=== PATIENT | female | born 1975 | race Caucasian/White ===

== ENCOUNTER 2016-10-21 08:56 | Emergency (ER) | payer BC, OTHER ==
[2016-10-21 09:42] LABS: BASOPHILS # (AUTO) 0.1 X10^3/uL (0.0-0.1); BASOPHILS % (AUTO) 1.4 % (0.2-1.0); EOSINOPHILS # (AUTO) 0.4 x10^3/uL (0.0-0.2); EOSINOPHILS % (AUTO) 3.8 % (0.9-2.9); HEMATOCRIT 39.3 % (36.0-47.0); HEMOGLOBIN 13.4 g/dL (12.0-16.0); LYMPHOCYTES # (AUTO) 3.1 X10^3/uL (1.3-2.9); LYMPHOCYTES % (AUTO) 31.7 % (21.0-51.0); MEAN CORPUSCULAR HEMOGLOBIN 29.6 pg (27.0-34.0); MEAN CORPUSCULAR HGB CONC 34.2 g/dL (33.0-35.0); MEAN CORPUSCULAR VOLUME 86.4 fL (80.0-100.0); MEAN PLATELET VOLUME 9.2 fL (7.4-11.0); MONOCYTES # (AUTO) 0.5 x10^3/uL (0.3-0.8); MONOCYTES % (AUTO) 5.4 % (0.0-13.0); NEUTROPHILS # (AUTO) 5.7 x10^3/uL (2.2-4.8); NEUTROPHILS % (AUTO) 57.7 % (42.0-75.0); PLATELET COUNT 434 X10^3/uL (150.0-450.0); RED BLOOD COUNT 4.54 X10^6/uL (3.5-5.4); RED CELL DISTRIBUTION WIDTH 13.3 % (11.6-16.5); WHITE BLOOD COUNT 9.9 X10^3/uL (3.6-10.0)
--- NOTE | 2016-10-21 09:48 | RAD ---
Chest, one view Indication: Chest pain Comparison: August 20, 2015 Findings: The cardiac silhouette is normal in size. No focal consolidation, effusion or pneumothorax is identified. The osseous thorax is unremarkable. Impression: No acute cardiopulmonary abnormality. Reported By:
--- NOTE | 2016-10-21 09:53 | DR.GENAD ---
HPI - PCP Primary Care Physician: CHEL - Complaint/Symptoms Chief Complaint Doctors Comments: History as stated. Patient admits to a cardiac echo on last year and a stress test is pending for Monday. Additionally; mom reports that patient has been living with her day in [employer] [facility] the [employer]. Two months her wes and Fridaly of last week they call stating the the Head Stone had arrived ready for placement. Chief Complaint:: PT C/O LT SIDED CHEST PAIN THAT RADIATES TO LT JAW. PT STATES SHE HAS BEEN HAVING PAINS SINCE THIS PAST MONDAY. PT STATES SHE WAS SEEN IN [facility] ER. PT STATES THE PAIN FEELS LIKE IT IS GETTING WORSE (STABBING PAIN. ) PT STATES HER PAIN IS A CONSTANT PAIN IT JUST GETS MORE INTENSE AT TIMES. - Source History Provided: Patient - Mode of Arrival Mode of Arrival: Ambulatory - Timing Onset of Chief Complaint: 10/17/16 PMH - PMH Past Medical History: Yes Past Medical History: Arthritis, Asthma, Dyslipidemia, Migraines, Hypertension, Hypothyroidism Past Medical History Comment: RAPID HR, SEASONAL ALLERGIES, INSOMNIA Past Surgical History: Yes Surgical History: Cholecystectomy, Ortho Surgery, Other, Tonsillectomy Past Surgical History Comment: TMJ SURGERY, X2 SINUS SURGERIES, RT HAND CARPAL TUNNEL, NERVE SURGERY IN RT ARM, TFCC REPAIR - Family History History of Family Medical Conditions: Yes Family Medical History: Hypertension - Social History Does any household member use tobacco: No Alcohol Use: None Do you use any recreational Drugs:: No Lives With: Mom Lives Where: Home - infectious screening In the last 2 months have you had wt loss of >10#?: NO Have you had fever, night sweats or hemotysis?: No Have you traveled outside the country in the last 6 months?: No Isolation: Standard ROS - Review of Systems Eyes: No Symptoms Reported ENTM: No Symptoms Reported Respiratoy: No Symptoms Reported Cardiovascular: No Symptoms Reported Gastrointestinal/Abdominal: No Symptoms Reported Genitourinary: No Symptoms Reported Neurological: No Symptoms Reported Musculoskeletal: No Symptoms Reported Integumentary: No Symptoms Reported Hematologic/Lymphatic: No Symptoms Reported Endocrine: No Symptoms Reported Psychiatric: No Symptoms Reported All Other Systems: Reviewed and Negative PE - Vital Signs Vitals: Temperature 98.5 F Pulse Rate 89 Respiratory Rate 18 Blood Pressure [Right Arm] 161/72 Blood Pressure [Left Arm] 140/73 Blood Pressure 120/77 O2 Sat by Pulse Oximetry 96 - General Limitations: No Limitations General Appearance: Alert, In No Apparent Distress - Head Head Exam: Normal Inspection, Atraumatic - Eyes Eye exam: Normal Appearance, PERRL, EOMI - ENT ENT Exam: Normal Exam External Ear Exam: Normal External Inspection TM/Canal Exam: Bilateral Normal Nose Exam: Normal Nose Exam Mouth Exam: Normal Inspection Throat Exam: Normal Inspection - Neck Neck Exam: Normal Inspection, Full ROM - Chest Chest Inspection: Normal Inspection - Respiratory Respiratory Exam: Normal Lung Sounds Bilat, Prolonged Expiratory Phase Respiratory Exam: Bilateral Clear to Auscultation - Cardiovascular Cardiovascular Exam: Regular Rate, Normal Rhythm - Abdominal Exam Abdominal Exam: Normal Inspection Abdominal Tenderness: negative: RUQ, RLQ, LUQ, LLQ, Epigastrium, Suprapubic, Diffuse, Mild, Moderate, Severe, Other - Extremities Extremities Exam: Normal Inspection, Full ROM - Back Back Exam: Normal Inspection, Full ROM - Neurologic Neurological Exam: Alert, Oriented X3, CN II-XII Intact - Psychiatric Psychiatric Exam: Normal Affect - Skin Skin Exam: Warm, Dry, Intact Course - Reevaluation 1st: Unchanged - Consultation Called: 20:00 (Dr Venegas called agreed to admit for chest pain r/o) ROR - Labs Reviewed Result Diagrams: 10/21/16 09:23 10/21/16 09:23 Laboratory: WBC 9.9 X10^3/uL (3.6-10.0) 10/21/16 09:23 RBC 4.54 X10^6/uL (3.5-5.4) 10/21/16 09:23 Hgb 13.4 g/dL (12.0-16.0) 10/21/16 09:23 Hct 39.3 % (36.0-47.0) 10/21/16 09:23 MCV 86.4 fL (80.0-100.0) 10/21/16 09:23 MCH 29.6 pg (27.0-34.0) 10/21/16 09:23 MCHC 34.2 g/dL (33.0-35.0) 10/21/16 09:23 RDW 13.3 % (11.6-16.5) 10/21/16 09:23 Plt Count 434 X10^3/uL (150.0-450.0) 10/21/16 09: MPV 9.2 fL (7.4-11.0) 10/21/16 09: Neut % 57.7 % (42.0-75.0) 10/21/16 09: Lymph % 31.7 % (21.0-51.0) 10/21/16 09:23 King % 5.4 % (0.0-13.0) 10/21/16 09: Eos % 3.8 % (0.9-2.9) H 10/21/16 09:23 Baso % 1.4 % (0.2-1.0) H 10/21/16 09:23 Neut # 5.7 x10^3/uL (2.2-4.8) H 10/21/16 09:23 Lymph # 3.1 X10^3/uL (1.3-2.9) H 10/21/16 09:23 King # 0.5 x10^3/uL (0.3-0.8) 10/21/16 09: Eos # 0.4 x10^3/uL (0.0-0.2) H 10/21/16 09:23 Baso # 0.1 X10^3/uL (0.0-0.1) 10/21/16 09:23 Absolute Nucleated RBC 0.0 /100WBC 10/21/16 09:23 INR Target Range - 10/21/16 09: INR 1.02 (0.8-1.3) 10/21/16 09: PTT 31.8 SECONDS (22.9-36.5) 10/21/16 09:23 PTT Comment - 10/21/16 09:23 Sodium 143 mmol/L (136-145) 10/21/16 09:23 Corrected Sodium TNP 10/21/16 09:23 Potassium 3.7 mmol/L (3.5-5.1) 10/21/16 09:23 Chloride 107 mmol/L (98-107) 10/21/16 09:23 Carbon Dioxide 25.5 mmol/L (21-32) 10/21/16 09:23 BUN 9 mg/dL (7-18) 10/21/16 09:23 Creatinine 0.93 mg/dL (0.55-1.02) 10/21/16 09:23 Est GFR (MDRD) Af Amer > 60 (>60) 10/21/16 09:23 Est GFR (MDRD) Non-Af > 60 (>60) 10/21/16 09:23 Glucose 92 mg/dL (65-99) 10/21/16 09:23 Calcium 9.3 mg/dL (8.5-10.1) 10/21/16 09:23 Corrected Calcium TNP 10/21/16 09:23 Magnesium 1.7 mg/dL (1.7-2.9) 10/21/16 09:23 Total Bilirubin 0.30 mg/dL (0.2-1.0) 10/21/16 09:23 AST 36 Units/L (15-37) 10/21/16 09:23 ALT 38 Units/L (12-78) 10/21/16 09:23 Alkaline Phosphatase 43 Units/L (46-116) L 10/21/16 09:23 Creatine Kinase 56 Units/L (26-192) 10/21/16 09:23 CK-MB (CK-2) < 1.0 ng/mL (0-4.0) 10/21/16 09:23 CK/CKMB % Calc 1.8 % (<4) 10/21/16 09:23 Troponin I < 0.02 ng/mL (0-1.5) 10/21/16 09:23 Total Protein 7.3 g/dL (6.4-8.2) 10/21/16 09:23 Albumin 3.7 g/dL (3.4-5.0) 10/21/16 09:23 Globulin 3.6 g/dL (2.5-4.5) 10/21/16 09:23 Albumin/Globulin Ratio 1.0 Ratio (1.1-2.1) L 10/21/16 09:23 - XRAY XRAY Interpreted by: Radiologist - Diagnosis Discharge Problem: Chest pain due to psychological stress Chest pain Qualifiers: Chest pain type: unspecified Qualified Code(s): R07.9 - Chest pain, unspecified - Discharge Plan Condition: Stable - Follow ups/Referrals Follow ups/Referrals: Surjit Gamboa [Primary Care Provider] - 3 days - Instructions
[2016-10-21 09:58] LABS: ALANINE AMINOTRANSFERASE 38 Units/L (12-78); ALBUMIN 3.7 g/dL (3.4-5.0); ALKALINE PHOSPHATASE 43 Units/L (46-116); ASPARTATE AMINO TRANSFERASE 36 Units/L (15-37); BLOOD UREA NITROGEN 9 mg/dL (7-18); CALCIUM 9.3 mg/dL (8.5-10.1); CARBON DIOXIDE 25.5 mmol/L (21-32); CHLORIDE 107 mmol/L (98-107); CREATINE KINASE 56 Units/L (26-192); CREATINE KINASE MB < 1.0 ng/mL (0-4.0); CREATININE 0.93 mg/dL (0.55-1.02); MAGNESIUM 1.7 mg/dL (1.7-2.9); SODIUM 143 mmol/L (136-145); TOTAL PROTEIN 7.3 g/dL (6.4-8.2); TROPONIN I < 0.02 ng/mL (0-1.5); eGFR BLACK RACES > 60 (>60); eGFR NON BLACK RACES > 60 (>60)
[2016-10-21 10:02] LABS: CKMB % 1.8 % (<4)
[2016-10-21] MEDS: NS 1000 ML 1,000 ML IV SCH ×2 (10:02→17:18)
[2016-10-21] MEDS: ASPIRIN PO SCH (10:03)
[2016-10-21] MEDS: NITROSTAT SL PRN ×3 (10:03→10:13)
[2016-10-21] MEDS ORDERED: MORPHINE SULFATE INJ 4 MG IVP ONE (11:00)
[2016-10-21] MEDS ORDERED: ZOFRAN INJ 4 MG VIAL IVP ONE (11:06)
[2016-10-21] MEDS ORDERED: ZOFRAN INJ 4 MG VIAL ONE (11:07)
[2016-10-21] MEDS ORDERED: MORPHINE SULFATE INJ 4 MG ONE (11:07)
[2016-10-21] MEDS ORDERED: MORPHINE SULFATE INJ 2 MG INJ NEB PRN (11:50)
[2016-10-21] MEDS ORDERED: ZOFRAN INJ 4 MG VIAL IVP PRN (11:50)
[2016-10-21] MEDS ORDERED: PHENERGAN INJ 25 MG ONE (12:49)
[2016-10-21] MEDS ORDERED: PHENERGAN INJ 25 MG IVP ONE (12:52)
[2016-10-21 13:38] VITALS: BMI 29.0
[2016-10-21] MEDS: TYLENOL 325 MG TAB PO PRN (14:03)
[2016-10-21 15:47] LABS: CREATINE KINASE 51 Units/L (26-192); CREATINE KINASE MB < 1.0 ng/mL (0-4.0); TROPONIN I < 0.02 ng/mL (0-1.5)
[2016-10-21] MEDS: NORCO 5/325 MG TAB PO PRN (20:50)
[2016-10-21 21:44] LABS: CREATINE KINASE 49 Units/L (26-192); CREATINE KINASE MB < 1.0 ng/mL (0-4.0); TROPONIN I < 0.02 ng/mL (0-1.5)
[2016-10-22] MEDS: NS 1000 ML 1,000 ML IV SCH ×3 (01:21→10:00)
[2016-10-22] MEDS: NORCO 5/325 MG TAB PO PRN (05:04)
[2016-10-22] MEDS: NITROSTAT SL PRN ×2 (07:35→09:51)
[2016-10-22] MEDS: ASPIRIN PO SCH (08:44)
[2016-10-22] MEDS: TYLENOL 325 MG TAB PO PRN (09:52)
[2016-10-22 12:19] VITALS: BP 137/78
== END 2016-10-22 14:25 | disposition home or self-care (01) ==
LOC: ER 09:05 → MED/SURG 11:46
PROVIDERS: ADMIT Internal Medicine; ATTEND Internal Medicine
DX: R07.89 Other chest pain (principal); M13.89 Other specified arthritis, multiple sites; E78.2 Mixed hyperlipidemia; I10 Essential (primary) hypertension; E03.8 Other specified hypothyroidism; F43.8 Other reactions to severe stress
CPT/HCPCS: 36415; 71010; 80053; 82550; 82553; 83735; 84484; 85025; 85610; 85730; 93005; 94760; 96365; 96367; 96374; 96375; 99284; A4222; G0378; J2270; J2405; J2550

== ENCOUNTER 2016-11-12 13:58 | Emergency (ER) | payer BC ==
[2016-11-12 14:02] VITALS: BP 160/96; BMI 29.2
--- NOTE | 2016-11-12 14:19 | DR.GENAD ---
HPI - PCP Primary Care Physician: CHEL - HPI Comment HPI Comment: NO FEVER. VERTIGO TODAY.MECLIZINE DID NOT HELP. HEADACHE SEVERE. NAUSEATED AND VOMITING. - Complaint/Symptoms Chief Complaint Doctors Comments: DIZZINESS, LT EAR PAIN, NAUSEA AND HEADACHE TIMES ONE DAY. Chief Complaint:: STARTED FEELING REALLY DIZZY YESTERDAY AND TODAY HER EARS STARTED TO HURT. - Nurses notes reviewed Nurses Notes Review: Yes - Source History Provided: Patient - Mode of Arrival Mode of Arrival: Ambulatory - Timing Onset of Chief Complaint: 11/11/16 PMH - PMH Past Medical History: Yes Past Medical History: Arthritis, Asthma, Dyslipidemia, Migraines, Hypertension, Hypothyroidism Past Surgical History: Yes Surgical History: Cholecystectomy, Tonsillectomy, Other - Family History History of Family Medical Conditions: Yes Family Medical History: Diabetes Mellitus, Cancer, NH, Coronary Artery Disease, Hypertension - Social History Does patient currently use any type of tobacco product: No Have you used tobacco products in the last 12 months: No Type of Tobacco Use: None Does any household member use tobacco: No Alcohol Use: None Do you use any recreational Drugs:: No Lives With: Family Lives Where: Home - infectious screening In the last 2 months have you had wt loss of >10#?: NO Have you had fever, night sweats or hemotysis?: No Have you traveled outside the country in the last 6 months?: No Isolation: Standard ROS - Review of Systems Constitutional: No Symptoms Reported Eyes: No Symptoms Reported. negative: Eye Pain, Discharge ENTM: Ear Pain (LT EAR), Ear Discharge, Nose Congestion. negative: Nose Discharge, Throat Pain Respiratoy: No Symptoms Reported Cardiovascular: No Symptoms Reported Gastrointestinal/Abdominal: Nausea, Vomiting Genitourinary: No Symptoms Reported. negative: Dysuria, Frequency, Hematuria Neurological: Headache, Weakness, Dizziness, Other (VERTIGO) Musculoskeletal: Back Pain, Muscle Pain, Back Integumentary: No Symptoms Reported Hematologic/Lymphatic: No Symptoms Reported Endocrine: No Symptoms Reported All Other Systems: Reviewed and Negative PE - Vital Signs Vitals: Pulse Rate 73 Respiratory Rate 20 Blood Pressure [Right Arm] 137/78 Blood Pressure [Left Arm] 140/73 Blood Pressure 160/96 O2 Sat by Pulse Oximetry 97 - General Limitations: No Limitations General Appearance: Alert - Head Head Exam: Normal Inspection - Eyes Eye exam: Normal Appearance, PERRL, EOMI. negative: Scleral Icterus, Conjunctival Injection - ENT ENT Exam: Normal Exam, Normal External Ear Exam. negative: TM's Normal Bilaterally (LT TM INFLAME.) External Ear Exam: Normal External Inspection. negative: Mastoid Tenderness TM/Canal Exam: Right Normal Nose Exam: Normal Nose Exam Mouth Exam: Normal Inspection Throat Exam: Normal Inspection, Tonsillar Erythema - Neck Neck Exam: Normal Inspection, Full ROM - Chest Chest Inspection: Symmetric Chest Wall Rise - Respiratory Respiratory Exam: Normal Lung Sounds Bilat Respiratory Exam: Bilateral Clear to Auscultation - Cardiovascular Cardiovascular Exam: Regular Rate, Normal Rhythm, Normal Heart Sounds - Abdominal Exam Abdominal Exam: Normal Inspection - Back Back Exam: Normal Inspection, Full ROM, Tenderness - Neurologic Neurological Exam: Alert, Oriented X3, CN II-XII Intact - Psychiatric Psychiatric Exam: Normal Mood - Skin Skin Exam: Erythema MDM - Additional Information Additional Information Obtained From: Old Records, Family - Differential Diagnosis Differential Diagnosis: VERTIGO, CVA, LT OTITIS MEDIA, PNEUMONIA, NH, UTI Course - Treatment Treatment: SEE ORDERS. IV MEDS IN ED. - Education/Counseling Education/Counseling: Patient, Family, Education Educated On: Treatment, Diagnosis, Needs for Follow Up ROR - Labs Reviewed Laboratory Results Reviewed?: Yes Result Diagrams: 11/12/16 14:30 11/12/16 14:30 Laboratory: WBC 12.0 X10^3/uL (3.6-10.0) H 11/12/16 14:30 RBC 4.89 X10^6/uL (3.5-5.4) 11/12/16 14:30 Hgb 14.7 g/dL (12.0-16.0) 11/12/16 14:30 Hct 42.7 % (36.0-47.0) 11/12/16 14:30 MCV 87.4 fL (80.0-100.0) 11/12/16 14:30 MCH 30.0 pg (27.0-34.0) 11/12/16 14:30 MCHC 34.4 g/dL (33.0-35.0) 11/12/16 14:30 RDW 13.7 % (11.6-16.5) 11/12/16 14:30 Plt Count 499 X10^3/uL (150.0-450.0) H 11/12/16 14:30 MPV 8.7 fL (7.4-11.0) 11/12/16 14:30 Neut % 70.7 % (42.0-75.0) 11/12/16 14:30 Lymph % 22.6 % (21.0-51.0) 11/12/16 14:30 Cassia % 4.7 % (0.0-13.0) 11/12/16 14:30 Eos % 0.9 % (0.9-2.9) 11/12/16 14:30 Baso % 1.1 % (0.2-1.0) H 11/12/16 14:30 Neut # 8.5 x10^3/uL (2.2-4.8) H 11/12/16 14:30 Lymph # 2.7 X10^3/uL (1.3-2.9) 11/12/16 14:30 Cassia # 0.6 x10^3/uL (0.3-0.8) 11/12/16 14:30 Eos # 0.1 x10^3/uL (0.0-0.2) 11/12/16 14:30 Baso # 0.1 X10^3/uL (0.0-0.1) 11/12/16 14:30 Absolute Nucleated RBC 0.0 /100WBC 11/12/16 14:30 Sodium 142 mmol/L (136-145) 11/12/16 14:30 Corrected Sodium TNP 11/12/16 14:30 Potassium 3.7 mmol/L (3.5-5.1) 11/12/16 14:30 Chloride 105 mmol/L (98-107) 11/12/16 14:30 Carbon Dioxide 21.5 mmol/L (21-32) 11/12/16 14:30 BUN 9 mg/dL (7-18) 11/12/16 14:30 Creatinine 1.34 mg/dL (0.55-1.02) H 11/12/16 14:30 Est GFR (MDRD) Af Amer 56 (>60) L 11/12/16 14:30 Est GFR (MDRD) Non-Af 47 (>60) L 11/12/16 14:30 Glucose 88 mg/dL (65-99) 11/12/16 14:30 Calcium 10.0 mg/dL (8.5-10.1) 11/12/16 14:30 Corrected Calcium TNP 11/12/16 14:30 Total Bilirubin 0.50 mg/dL (0.2-1.0) 11/12/16 14:30 AST 27 Units/L (15-37) 11/12/16 14:30 ALT 29 Units/L (12-78) 11/12/16 14:30 Alkaline Phosphatase 42 Units/L (46-116) L 11/12/16 14:30 Creatine Kinase 72 Units/L (26-192) 11/12/16 14:30 CK-MB (CK-2) < 1.0 ng/mL (0-4.0) 11/12/16 14:30 CK/CKMB % Calc 1.4 % (<4) 11/12/16 14:30 Troponin I < 0.02 ng/mL (0-1.5) 11/12/16 14:30 Total Protein 8.4 g/dL (6.4-8.2) H 11/12/16 14:30 Albumin 4.4 g/dL (3.4-5.0) 11/12/16 14:30 Globulin 4.0 g/dL (2.5-4.5) 11/12/16 14:30 Albumin/Globulin Ratio 1.1 Ratio (1.1-2.1) 11/12/16 14:30 - XRAY XRAY Interpreted by: Radiologist XRAY Findings: REPORT DISCUSS WITH PATIENT AND FAMILY. - Diagnosis Discharge Problem: Dizziness, Vertigo Headache Qualifiers: Headache type: other headache syndrome Qualified Code(s): G44.89 - Other headache syndrome Otitis media Qualifiers: Otitis media type: suppurative Chronicity: acute Laterality: left Recurrence: not specified as recurrent Spontaneous tympanic membrane rupture: without spontaneous rupture Qualified Code(s): H66.002 - Acute suppurative otitis media without spontaneous rupture of ear drum, left ear Acute sinusitis Qualifiers: Sinusitis location: sphenoidal Recurrence: not specified as recurrent Qualified Code(s): J01.30 - Acute sphenoidal sinusitis, unspecified - Discharge Plan Disposition: 01 HOME, SELF-CARE Condition: Stable Prescriptions: Amoxicillin & Pot Clavulanate [AUGMENTIN TAB 875 mg/125 mg *] 1 tab PO BID #20 tab Copzriiwaz-Iiua-Rzmkkvum [Fioricet Tab] 1 tab PO Q8H PRN #30 tab PRN Reason: Migraine Headache Meclizine HCl [ANTIVERT 25 MG *] 25 mg PO TID PRN #30 tab PRN Reason: MOTION SICKNESS Ondansetron HCl [Zofran Tab 4 mg] 4 mg PO Q8H PRN #12 tab PRN Reason: Nausea/Vomiting - Follow ups/Referrals Follow ups/Referrals: Surjit Gamboa [Primary Care Provider] - 3 days - Instructions Instructions: Vertigo, [id number], Otitis Media, Adult, Pkfr-[id number]-[id number], Sinusitis, Adult, Qibz-tt-[id number], Sinus Headache, Gchs-mz-Trko
[2016-11-12] MEDS ORDERED: DEMEROL INJ IVP ONE (14:20)
[2016-11-12] MEDS ORDERED: PHENERGAN INJ 25 MG IV ONE (14:20)
[2016-11-12] MEDS ORDERED: PHENERGAN INJ 25 MG ONE (14:30)
[2016-11-12] MEDS ORDERED: DEMEROL INJ ONE (14:31)
[2016-11-12 14:37] LABS: BASOPHILS # (AUTO) 0.1 X10^3/uL (0.0-0.1); BASOPHILS % (AUTO) 1.1 % (0.2-1.0); EOSINOPHILS # (AUTO) 0.1 x10^3/uL (0.0-0.2); EOSINOPHILS % (AUTO) 0.9 % (0.9-2.9); HEMATOCRIT 42.7 % (36.0-47.0); HEMOGLOBIN 14.7 g/dL (12.0-16.0); LYMPHOCYTES # (AUTO) 2.7 X10^3/uL (1.3-2.9); LYMPHOCYTES % (AUTO) 22.6 % (21.0-51.0); MEAN CORPUSCULAR HGB CONC 34.4 g/dL (33.0-35.0); MEAN CORPUSCULAR VOLUME 87.4 fL (80.0-100.0); MEAN PLATELET VOLUME 8.7 fL (7.4-11.0); MONOCYTES # (AUTO) 0.6 x10^3/uL (0.3-0.8); MONOCYTES % (AUTO) 4.7 % (0.0-13.0); NEUTROPHILS # (AUTO) 8.5 x10^3/uL (2.2-4.8); NEUTROPHILS % (AUTO) 70.7 % (42.0-75.0); PLATELET COUNT 499 X10^3/uL (150.0-450.0); RED BLOOD COUNT 4.89 X10^6/uL (3.5-5.4); RED CELL DISTRIBUTION WIDTH 13.7 % (11.6-16.5)
[2016-11-12 14:56] LABS: BLOOD UREA NITROGEN 9 mg/dL (7-18); CARBON DIOXIDE 21.5 mmol/L (21-32); CHLORIDE 105 mmol/L (98-107); CREATININE 1.34 mg/dL (0.55-1.02); SODIUM 142 mmol/L (136-145); eGFR BLACK RACES 56 (>60); eGFR NON BLACK RACES 47 (>60)
--- NOTE | 2016-11-12 15:05 | CT ---
HISTORY: Headache, dizziness Study: CT brain without contrast Comparison: 08/21/2015 Technique: Multiple axial images of the brain were obtained from the skull base to the vertex without administra tion of IV contrast. Automated exposure control (AEC) was utilized to adjust the MA and/or kV accordi ng to patient size. Findings: There is no acute intracranial hemorrhage. The brain parenchyma is normal in density. No mass or ma ss effect. No abnormal extra-axial fluid collection. The ventricles are normal in size, shape and position. Basilar cisterns patent. Angel matter -white m atter interface is distinct. There are aerosolized secretions within both sphenoid chambers. There is no acute osseous abnormalit y. IMPRESSION: 1. No acute intracranial process can be identified. 2. Aerosolized secretions within the sphenoid chambers consistent with acute sinusitis in the appropr [facility] clinical setting. Reported By:
[2016-11-12 15:11] LABS: ALANINE AMINOTRANSFERASE 29 Units/L (12-78); ALBUMIN 4.4 g/dL (3.4-5.0); ALKALINE PHOSPHATASE 42 Units/L (46-116); ASPARTATE AMINO TRANSFERASE 27 Units/L (15-37); CKMB % 1.4 % (<4); CREATINE KINASE 72 Units/L (26-192); TOTAL PROTEIN 8.4 g/dL (6.4-8.2)
[2016-11-12 15:19] LABS: CREATINE KINASE MB < 1.0 ng/mL (0-4.0); TROPONIN I < 0.02 ng/mL (0-1.5)
[2016-11-12] MEDS ORDERED: DECADRON INJ IM ONE (15:56)
[2016-11-12] MEDS ORDERED: TORADOL 30 MG VIAL IVP ONE (15:56)
[2016-11-12] MEDS ORDERED: ROCEPHIN VIAL 1 GM 1 GM in NS 50 ML IV + SPIKE MINIBAG* 50 ML IV ONE (15:56)
== END 2016-11-12 16:20 | disposition home or self-care (01) ==
LOC: ER 14:06
DX: G44.89 Other headache syndrome (principal); R42 Dizziness and giddiness; H66.002 Acute suppurative otitis media without spontaneous rupture of ear drum, left ear; J01.80 Other acute sinusitis
CPT/HCPCS: 36415; 70450; 80053; 82550; 82553; 84484; 85025; 93005; 96365; 96374; 96375; 99283; A4222; J2175; J2550

== ENCOUNTER 2016-11-14 13:08 | Observation (INO) | payer BC ==
[2016-11-14] MEDS ORDERED: ROCEPHIN VIAL 1 GM 1 GM in NS 50 ML IV + SPIKE MINIBAG* 50 ML IV SCH (14:05)
[2016-11-14] MEDS ORDERED: PHENERGAN INJ 25 MG IM PRN (14:05)
[2016-11-14 14:34] LABS: BASOPHILS # (AUTO) 0.1 X10^3/uL (0.0-0.1); BASOPHILS % (AUTO) 1.3 % (0.2-1.0); EOSINOPHILS # (AUTO) 0.1 x10^3/uL (0.0-0.2); EOSINOPHILS % (AUTO) 0.9 % (0.9-2.9); HEMATOCRIT 42.8 % (36.0-47.0); HEMOGLOBIN 14.8 g/dL (12.0-16.0); LYMPHOCYTES # (AUTO) 1.9 X10^3/uL (1.3-2.9); LYMPHOCYTES % (AUTO) 20.2 % (21.0-51.0); MEAN CORPUSCULAR HEMOGLOBIN 30.2 pg (27.0-34.0); MEAN CORPUSCULAR HGB CONC 34.7 g/dL (33.0-35.0); MEAN CORPUSCULAR VOLUME 87.2 fL (80.0-100.0); MEAN PLATELET VOLUME 8.6 fL (7.4-11.0); MONOCYTES # (AUTO) 0.4 x10^3/uL (0.3-0.8); MONOCYTES % (AUTO) 3.9 % (0.0-13.0); NEUTROPHILS # (AUTO) 7.1 x10^3/uL (2.2-4.8); NEUTROPHILS % (AUTO) 73.7 % (42.0-75.0); PLATELET COUNT 462 X10^3/uL (150.0-450.0); RED CELL DISTRIBUTION WIDTH 13.8 % (11.6-16.5); WHITE BLOOD COUNT 9.6 X10^3/uL (3.6-10.0)
[2016-11-14 14:45] LABS: ALANINE AMINOTRANSFERASE 34 Units/L (12-78); ALBUMIN 4.6 g/dL (3.4-5.0); ALKALINE PHOSPHATASE 44 Units/L (46-116); ASPARTATE AMINO TRANSFERASE 31 Units/L (15-37); BLOOD UREA NITROGEN 9 mg/dL (7-18); CARBON DIOXIDE 23.5 mmol/L (21-32); CHLORIDE 106 mmol/L (98-107); CREATININE 1.21 mg/dL (0.55-1.02); SODIUM 142 mmol/L (136-145); TOTAL PROTEIN 8.7 g/dL (6.4-8.2); eGFR BLACK RACES > 60 (>60); eGFR NON BLACK RACES 52 (>60)
[2016-11-14] MEDS: NS 1000 ML 1,000 ML IV SCH (15:47)
[2016-11-14] MEDS: ANTIVERT TAB 25 MG PO SCH ×3 (15:48→20:57)
[2016-11-14] MEDS: SOLU-Medrol 125 MG VIAL IVP SCH ×2 (15:48→21:11)
[2016-11-14 17:41] VITALS: BMI 28.6
[2016-11-14] MEDS ORDERED: XANAX PO PRN (20:18)
[2016-11-14] MEDS ORDERED: ZOFRAN TAB 4 MG PO PRN (20:48)
[2016-11-14] MEDS: PROTONIX TAB 40 MG PO SCH (20:57)
[2016-11-14] MEDS: NORCO 5/325 MG TAB PO PRN (20:57)
[2016-11-14] MEDS: PHENERGAN INJ 25 MG IM PRN (20:58)
[2016-11-14] MEDS: SINGULAIR TAB 10 MG PO SCH (20:58)
[2016-11-14] MEDS: AMBIEN PO SCH (20:58)
[2016-11-14] MEDS: FLONASE NASAL SPRAY ENOSTRIL SCH (20:59)
[2016-11-14] MEDS: ZANAFLEX PO SCH (21:11)
[2016-11-14] MEDS: TESSALON PERLES PO SCH (21:11)
[2016-11-14] MEDS: NEURONTIN TAB 600 MG PO SCH (21:11)
[2016-11-14] MEDS ORDERED: PROVENTIL NEB TX 0.083% 2.5MG/ 3ML NEB PRN (21:17)
[2016-11-15] MEDS: NORCO 5/325 MG TAB PO PRN ×3 (04:03→18:25)
[2016-11-15] MEDS: PHENERGAN INJ 25 MG IM PRN ×2 (04:03→11:22)
[2016-11-15 05:21] LABS: BASOPHILS % (AUTO) 0.3 % (0.2-1.0); HEMATOCRIT 39.6 % (36.0-47.0); HEMOGLOBIN 13.5 g/dL (12.0-16.0); LYMPHOCYTES # (AUTO) 1.2 X10^3/uL (1.3-2.9); LYMPHOCYTES % (AUTO) 10.6 % (21.0-51.0); MEAN CORPUSCULAR HEMOGLOBIN 29.8 pg (27.0-34.0); MEAN CORPUSCULAR VOLUME 87.6 fL (80.0-100.0); MEAN PLATELET VOLUME 9.1 fL (7.4-11.0); MONOCYTES # (AUTO) 0.1 x10^3/uL (0.3-0.8); MONOCYTES % (AUTO) 1.3 % (0.0-13.0); NEUTROPHILS # (AUTO) 9.8 x10^3/uL (2.2-4.8); NEUTROPHILS % (AUTO) 87.8 % (42.0-75.0); PLATELET COUNT 450 X10^3/uL (150.0-450.0); RED BLOOD COUNT 4.52 X10^6/uL (3.5-5.4); WHITE BLOOD COUNT 11.1 X10^3/uL (3.6-10.0)
[2016-11-15 05:24] LABS: ALANINE AMINOTRANSFERASE 35 Units/L (12-78); ALBUMIN 3.9 g/dL (3.4-5.0); ALKALINE PHOSPHATASE 36 Units/L (46-116); ASPARTATE AMINO TRANSFERASE 31 Units/L (15-37); BLOOD UREA NITROGEN 14 mg/dL (7-18); CALCIUM 9.4 mg/dL (8.5-10.1); CARBON DIOXIDE 19.5 mmol/L (21-32); CHLORIDE 106 mmol/L (98-107); COR NA(FOR HYPERGLY) 143 mmol/L (136-145); CREATININE 1.13 mg/dL (0.55-1.02); SODIUM 142 mmol/L (136-145); TOTAL PROTEIN 7.7 g/dL (6.4-8.2); eGFR BLACK RACES > 60 (>60); eGFR NON BLACK RACES 57 (>60)
[2016-11-15] MEDS: NEURONTIN TAB 600 MG PO SCH ×3 (05:41→21:47)
[2016-11-15] MEDS: TESSALON PERLES PO SCH ×3 (05:41→21:47)
[2016-11-15] MEDS: SOLU-Medrol 125 MG VIAL IVP SCH ×3 (05:41→21:46)
[2016-11-15] MEDS: ZANAFLEX PO SCH ×3 (05:41→21:46)
[2016-11-15] MEDS: NS 1000 ML 1,000 ML IV SCH ×2 (05:45→21:53)
[2016-11-15] MEDS: SYNTHROID 50 mcg TAB PO SCH (06:01)
[2016-11-15] MEDS ORDERED: ZOLOFT PO ONE (08:46)
[2016-11-15] MEDS ORDERED: PATIENT'S HOME MEDICATION PO SCH ×2 (09:00)
[2016-11-15] MEDS: PROTONIX TAB 40 MG PO SCH ×2 (09:14→21:47)
[2016-11-15] MEDS: TOPROL XL PO SCH (09:14)
[2016-11-15] MEDS: ZANTAC PO SCH (09:14)
[2016-11-15] MEDS: MOBIC TAB 15 MG PO SCH (09:14)
[2016-11-15] MEDS: FOLIC ACID TAB 1 MG PO SCH (09:14)
[2016-11-15] MEDS: ANTIVERT TAB 25 MG PO SCH ×4 (09:14→21:46)
[2016-11-15] MEDS: TRICOR TAB 160 MG PO SCH (09:14)
[2016-11-15] MEDS: ZOLOFT PO SCH (09:14)
[2016-11-15] MEDS: FLONASE NASAL SPRAY ENOSTRIL SCH ×2 (09:16→21:47)
[2016-11-15] MEDS: ROCEPHIN VIAL 1 GM 1 GM in NS 50 ML IV 50 ML IV SCH (11:21)
[2016-11-15] MEDS: CLARITIN-D 12 HOUR TAB PO SCH ×2 (11:25→21:59)
--- NOTE | 2016-11-15 12:58 | DR.UPDATE ---
H&P Update History and Physical Update: PATIENT WAS SEEN IN THE OFFICE ON 11/14/16. A H&P WAS COMPLETED PRIOR TO ADMISSION. PATIENT HAS BEEN SEEN AND EXAMINED WITH NO CHANGES NOTED TO H&P. Changes noted: NO Yes with the following:
--- NOTE | 2016-11-15 19:31 | MRI ---
STUDY: MRI OF THE BRAIN WITHOUT GADOLINIUM History: Refractory headache. Sinusitis. Dizziness. Comparison: Brain MRI dated August 21, 2015. Head CT from August 21, 2015. Technique: Multiplanar multi-sequence MRI of the brain was obtained utilizing standard departmental p rotocol. Sagittal and axial T1, axial T2, FLAIR, diffusion (DWI/ADC) images through the brain were pe rformed. Findings: The sulci, cisterns, and ventricles are age appropriate. There is no evidence of acute terr itorial infarction, hemorrhage, mass, mass effect or midline shift. There are no abnormal intra-axial or extra-axial fluid collections. The major intracranial vascular flow voids are intact. IMPRESSION: 1. No evidence of acute intracranial abnormality. Reported By:
[2016-11-15] MEDS: SINGULAIR TAB 10 MG PO SCH (21:46)
[2016-11-15] MEDS: AMBIEN PO SCH (21:46)
--- NOTE | 2016-11-15 21:57 | PCM.PROG ---
Progress Note - Progress Note for Day of Date: 11/15/16 - Subjective Subjective: WAS A DIRECT ADMISSION FOR NAUSEA, HEADACHE, AND SINUSITIS , AND DIZZINESS. SHE IS LYING IN BED, ALERT AND ORIENTED ON MORNING ROUNDS. TODAY, SHE CONTINUES WITH COMPLAINTS OF NAUSEA AND HEADACHE. SHE RATES PAIN A 6/ 10. PATIENT REPORTS THAT SHE HASNT THROWN UP SINCE LAST NIGHT. ON EXAMINATION, LUNGS ARE CLEAR TO AUSCULTATION. ABDOMEN IS SOFT, ROUND, AND TENDER. BOWEL SOUNDS ARE NOTED HYPERACTIVE IN ALL QUADRANTS. HER VITAL SIGNS THIS MORNING WERE 98.3-94-20-95%-116/62. WE OBTAINED A CBC AND CMP. ABNORMAL LAB VALUES INCLUDE THE FOLLOWING: WBC 11.1, CARBON DIOXIDE 19.5, CREATININE 1.13, GLUCOSE 142, ALK PHOS 36. PATIENT REPORTS THAT A BRAIN CT WAS DONE IN THE ER ON MONDAY. WE OBTAINED THAT REPORT. IT REPORTS AEROSOLIZED SECREATIONS WITHIN THESPHENOID CHAMBERS CONSISTENT WITH ACUTE SINUSITIS IN THE APPROPRIATE CLINICAL SETTING. OTHERWISE, NO ACUTE INTRACRANIAL PROCESS CAN BE IDENTIFIED. WE WILL OBTAIN A MRI OF THE BRAIN TODAY. OTHERWISE, WE WILL CONTINUE WITH CURRENT PLAN OF CARE. WE PLAN TO RECHECK CBC AND CMP IN THE MORNING. WE WILL CONTINUE TO MONITOR PATIENT. - Past Medical Family Social History Past Med/Fam/Surg Hx: No changes since H&P Allergies: Allergies albuterol [From DuoNeb] Allergy (Verified 10/21/16 11:57) clarithromycin [From Biaxin] Allergy (Verified 10/21/16 11:57) ipratropium [From DuoNeb] Allergy (Verified 10/21/16 11:57) levalbuterol [From Xopenex] Allergy (Verified 10/21/16 11:57) topiramate [From Topamax] Allergy (Verified 10/21/16 11:57) - Review of Systems ROS: No change since H&P - Vital Signs and I&O's Vital Signs: Temperature 98.2 F Pulse Rate [Right Brachial] 89 Respiratory Rate 22 Blood Pressure [Right Arm] 166/22 Blood Pressure [Left Arm] 140/73 Blood Pressure 160/96 O2 Sat by Pulse Oximetry 100 Intake and Output: Intake & Output 11/13/16 11/14/16 11/15/16 11/16/16 11:59 11:59 11:59 11:59 Intake Total 1280 748 Balance 1280 748 - Physical Exam Oriented: Normal Eyes: Normal Ear: Normal Nose: Normal Throat: Normal Respiratory: Normal Cardiovascular: Normal : Normal Auscultation: Bowel Sounds: Normal Palpation: Normal Tenderness: Normal Skin: Normal Musculoskeletal: Normal Psychiatric: Normal Mood Description: Calm Affect: Normal Speech Pattern: Clear, Appropriate - Laboratory and Diagnostics Result Diagrams: 11/15/16 04:05 11/15/16 04:05 Labs: Laboratory WBC 11.1 X10^3/uL (3.6-10.0) H 11/15/16 04:05 RBC 4.52 X10^6/uL (3.5-5.4) 11/15/16 04:05 Hgb 13.5 g/dL (12.0-16.0) 11/15/16 04:05 Hct 39.6 % (36.0-47.0) 11/15/16 04:05 MCV 87.6 fL (80.0-100.0) 11/15/16 04:05 MCH 29.8 pg (27.0-34.0) 11/15/16 04:05 MCHC 34.0 g/dL (33.0-35.0) 11/15/16 04:05 RDW 14.0 % (11.6-16.5) 11/15/16 04:05 Plt Count 450 X10^3/uL (150.0-450.0) 11/15/16 04:05 MPV 9.1 fL (7.4-11.0) 11/15/16 04:05 Neut % 87.8 % (42.0-75.0) H 11/15/16 04:05 Lymph % 10.6 % (21.0-51.0) L 11/15/16 04:05 Trego % 1.3 % (0.0-13.0) 11/15/16 04:05 Eos % 0.0 % (0.9-2.9) L 11/15/16 04:05 Baso % 0.3 % (0.2-1.0) 11/15/16 04:05 Neut # 9.8 x10^3/uL (2.2-4.8) H 11/15/16 04:05 Lymph # 1.2 X10^3/uL (1.3-2.9) L 11/15/16 04:05 Trego # 0.1 x10^3/uL (0.3-0.8) L 11/15/16 04:05 Eos # 0.0 x10^3/uL (0.0-0.2) 11/15/16 04:05 Baso # 0.0 X10^3/uL (0.0-0.1) 11/15/16 04:05 Absolute Nucleated RBC 0.0 /100WBC 11/15/16 04:05 Sodium 142 mmol/L (136-145) 11/15/16 04:05 Corrected Sodium 143 mmol/L (136-145) 11/15/16 04:05 Potassium 4.0 mmol/L (3.5-5.1) 11/15/16 04:05 Chloride 106 mmol/L (98-107) 11/15/16 04:05 Carbon Dioxide 19.5 mmol/L (21-32) L 11/15/16 04:05 BUN 14 mg/dL (7-18) 11/15/16 04:05 Creatinine 1.13 mg/dL (0.55-1.02) H 11/15/16 04:05 Est GFR (MDRD) Af Amer > 60 (>60) 11/15/16 04:05 Est GFR (MDRD) Non-Af 57 (>60) L 11/15/16 04:05 Glucose 142 mg/dL (65-99) H 11/15/16 04:05 Calcium 9.4 mg/dL (8.5-10.1) 11/15/16 04:05 Corrected Calcium TNP 11/15/16 04:05 Total Bilirubin 0.30 mg/dL (0.2-1.0) 11/15/16 04:05 AST 31 Units/L (15-37) 11/15/16 04:05 ALT 35 Units/L (12-78) 11/15/16 04:05 Alkaline Phosphatase 36 Units/L (46-116) L 11/15/16 04:05 Total Protein 7.7 g/dL (6.4-8.2) 11/15/16 04:05 Albumin 3.9 g/dL (3.4-5.0) 11/15/16 04:05 Globulin 3.8 g/dL (2.5-4.5) 11/15/16 04:05 Albumin/Globulin Ratio 1.0 Ratio (1.1-2.1) L 11/15/16 04:05 - Plan (1) Acute sinusitis Status: Acute Plan: ROCEPHIN 1 GM DAILY, REHANA D, SINGULAIR, FLONASE, CONTINUE TO MONITOR
[2016-11-16] MEDS: NORCO 5/325 MG TAB PO PRN (03:28)
[2016-11-16 05:34] LABS: ALANINE AMINOTRANSFERASE 35 Units/L (12-78); ALBUMIN 3.9 g/dL (3.4-5.0); ALKALINE PHOSPHATASE 36 Units/L (46-116); ASPARTATE AMINO TRANSFERASE 30 Units/L (15-37); BLOOD UREA NITROGEN 15 mg/dL (7-18); CALCIUM 9.3 mg/dL (8.5-10.1); CARBON DIOXIDE 22.9 mmol/L (21-32); CHLORIDE 107 mmol/L (98-107); COR NA(FOR HYPERGLY) 143 mmol/L (136-145); SODIUM 142 mmol/L (136-145); TOTAL PROTEIN 7.5 g/dL (6.4-8.2); eGFR BLACK RACES > 60 (>60); eGFR NON BLACK RACES > 60 (>60)
[2016-11-16 05:36] LABS: BASOPHILS % (AUTO) 0.3 % (0.2-1.0); HEMATOCRIT 39.5 % (36.0-47.0); HEMOGLOBIN 13.3 g/dL (12.0-16.0); LYMPHOCYTES # (AUTO) 1.5 X10^3/uL (1.3-2.9); LYMPHOCYTES % (AUTO) 10.4 % (21.0-51.0); MEAN CORPUSCULAR HGB CONC 33.7 g/dL (33.0-35.0); MEAN CORPUSCULAR VOLUME 88.9 fL (80.0-100.0); MEAN PLATELET VOLUME 9.1 fL (7.4-11.0); MONOCYTES # (AUTO) 0.2 x10^3/uL (0.3-0.8); MONOCYTES % (AUTO) 1.5 % (0.0-13.0); NEUTROPHILS # (AUTO) 12.8 x10^3/uL (2.2-4.8); NEUTROPHILS % (AUTO) 87.8 % (42.0-75.0); PLATELET COUNT 477 X10^3/uL (150.0-450.0); RED BLOOD COUNT 4.44 X10^6/uL (3.5-5.4); WHITE BLOOD COUNT 14.5 X10^3/uL (3.6-10.0)
[2016-11-16] MEDS: SOLU-Medrol 125 MG VIAL IVP SCH (06:05)
[2016-11-16] MEDS: ZANAFLEX PO SCH (06:06)
[2016-11-16] MEDS: SYNTHROID 50 mcg TAB PO SCH (06:06)
[2016-11-16] MEDS: NEURONTIN TAB 600 MG PO SCH (06:06)
[2016-11-16] MEDS: TESSALON PERLES PO SCH (06:06)
[2016-11-16 08:08] VITALS: BP 135/78
[2016-11-16] MEDS ORDERED: ZOLOFT PO ONE (08:23)
[2016-11-16] MEDS: MOBIC TAB 15 MG PO SCH (08:36)
[2016-11-16] MEDS: TRICOR TAB 160 MG PO SCH (08:36)
[2016-11-16] MEDS: TOPROL XL PO SCH (08:36)
[2016-11-16] MEDS: ANTIVERT TAB 25 MG PO SCH (08:36)
[2016-11-16] MEDS: FOLIC ACID TAB 1 MG PO SCH (08:36)
[2016-11-16] MEDS: PROTONIX TAB 40 MG PO SCH (08:36)
[2016-11-16] MEDS: ZANTAC PO SCH (08:36)
[2016-11-16] MEDS: ROCEPHIN VIAL 1 GM 1 GM in NS 50 ML IV 50 ML IV SCH (08:37)
[2016-11-16] MEDS: ZOLOFT PO SCH (08:37)
[2016-11-16] MEDS: FLONASE NASAL SPRAY ENOSTRIL SCH (08:46)
[2016-11-16] MEDS ORDERED: NUBAIN INJ 10 IM ONE (09:40)
[2016-11-16] MEDS: CLARITIN-D 12 HOUR TAB PO SCH (10:12)
[2016-11-16] MEDS ORDERED: NUBAIN INJ 10 IM NR (12:00)
[2016-11-16] MEDS: PHENERGAN INJ 25 MG IM PRN (12:01)
== END 2016-11-16 12:15 | disposition home or self-care (01) ==
LOC: MED/SURG 13:08
PROVIDERS: ADMIT Internal Medicine; ATTEND Internal Medicine
DX: R51 Headache (principal); R42 Dizziness and giddiness; J01.80 Other acute sinusitis; H81.13 Benign paroxysmal vertigo, bilateral; R26.89 Other abnormalities of gait and mobility; R94.4 Abnormal results of kidney function studies
CPT/HCPCS: 36415; 70551; 80053; 85025; 94760; A4222; G0378; J0696; J2300; J2550; J2930

== ENCOUNTER 2017-12-14 10:58 | Observation (INO) ==
[2017-12-14] MEDS ORDERED: NS 1000 ML 1,000 ML ONE (12:04)
[2017-12-14] MEDS ORDERED: ZOFRAN INJ 4 MG VIAL ONE (12:25)
[2017-12-14] MEDS: ZOFRAN INJ 4 MG VIAL IVP PRN (12:30)
[2017-12-14 12:35] LABS: BILIRUBIN,URINE 1+ (NEGATIVE); BLOOD/HEMOGLOBIN,URINE NEGATIVE (NEGATIVE); GLUCOSE, URINE NEGATIVE (NEGATIVE); KETONES,URINE NEGATIVE (NEGATIVE); LEUKOCYTE ESTERASE ,URINE 1+ (NEGATIVE); NITRITES,URINE NEGATIVE (NEGATIVE); PROTEIN,URINE 2+ (NEGATIVE); UROBILINOGEN,URINE 1+ (NORMAL)
[2017-12-14] MEDS: NS 1000 ML 1,000 ML IV SCH (12:44)
[2017-12-14 12:49] LABS: APPEARANCE,URINE HAZY (CLEAR); COLOR,URINE DARK YELLOW (YELLOW)
[2017-12-14 12:50] LABS: RBC,URINE NONE SEEN /HPF (NONE SEEN)
[2017-12-14 12:51] LABS: BACTERIA,URINE TRACE /HPF (NEGATIVE); SQUAMOUS EPITHELIAL CELL,UR MANY /HPF (NEGATIVE)
[2017-12-14 12:56] LABS: BASOPHILS # (AUTO) 0.1 X10^3/uL (0.0-0.1); BASOPHILS % (AUTO) 1.1 % (0.2-1.0); EOSINOPHILS # (AUTO) 0.1 x10^3/uL (0.0-0.2); EOSINOPHILS % (AUTO) 1.8 % (0.9-2.9); HEMATOCRIT 36.1 % (36.0-47.0); HEMOGLOBIN 12.3 g/dL (12.0-16.0); LYMPHOCYTES # (AUTO) 1.8 X10^3/uL (1.3-2.9); LYMPHOCYTES % (AUTO) 25.4 % (21.0-51.0); MEAN CORPUSCULAR HEMOGLOBIN 31.7 pg (27.0-34.0); MEAN CORPUSCULAR HGB CONC 34.2 g/dL (33.0-35.0); MEAN CORPUSCULAR VOLUME 92.6 fL (80.0-100.0); MEAN PLATELET VOLUME 9.1 fL (7.4-11.0); MONOCYTES # (AUTO) 0.3 x10^3/uL (0.3-0.8); MONOCYTES % (AUTO) 4.5 % (0.0-13.0); NEUTROPHILS # (AUTO) 4.8 x10^3/uL (2.2-4.8); NEUTROPHILS % (AUTO) 67.2 % (42.0-75.0); PLATELET COUNT 427 X10^3/uL (150.0-450.0); RED CELL DISTRIBUTION WIDTH 14.3 % (11.6-16.5); WHITE BLOOD COUNT 7.1 X10^3/uL (3.6-10.0)
[2017-12-14 13:07] LABS: ALANINE AMINOTRANSFERASE 39 Units/L (12-78); ALKALINE PHOSPHATASE 31 Units/L (46-116); ASPARTATE AMINO TRANSFERASE 29 Units/L (15-37); BLOOD UREA NITROGEN 11 mg/dL (7-18); CALCIUM 9.2 mg/dL (8.5-10.1); CARBON DIOXIDE 22.9 mmol/L (21-32); CHLORIDE 105 mmol/L (98-107); COR NA(FOR HYPERGLY) 139 mmol/L (136-145); CREATININE 1.16 mg/dL (0.55-1.02); SODIUM 139 mmol/L (136-145); TOTAL PROTEIN 7.4 g/dL (6.4-8.2); eGFR NON BLACK RACES 55 (>60)
[2017-12-14] MEDS ORDERED: PHENERGAN INJ 25 MG ONE (13:33)
[2017-12-14] MEDS: PHENERGAN INJ 25 MG IV PRN ×2 (13:36→23:33)
--- NOTE | 2017-12-14 14:57 | RAD ---
HISTORY: Near syncopal episode. Study: AP portable chest Comparison: 10/21/2016 Findings: The lungs are clear. The heart size is normal. No acute bony abnormalities are identified. IMPRESSION: 1. No radiographic evidence of acute cardiopulmonary disease or significant change is noted when co mpared to the prior examination. Reported By:
[2017-12-14 15:42] VITALS: BMI 28.6
[2017-12-14] MEDS ORDERED: TYLENOL 325 MG TAB PO PRN (23:35)
[2017-12-15 05:51] LABS: BASOPHILS # (AUTO) 0.1 X10^3/uL (0.0-0.1); EOSINOPHILS # (AUTO) 0.3 x10^3/uL (0.0-0.2); EOSINOPHILS % (AUTO) 3.4 % (0.9-2.9); HEMATOCRIT 34.5 % (36.0-47.0); HEMOGLOBIN 11.7 g/dL (12.0-16.0); LYMPHOCYTES # (AUTO) 3.3 X10^3/uL (1.3-2.9); LYMPHOCYTES % (AUTO) 42.1 % (21.0-51.0); MEAN CORPUSCULAR HEMOGLOBIN 31.4 pg (27.0-34.0); MEAN CORPUSCULAR VOLUME 92.3 fL (80.0-100.0); MEAN PLATELET VOLUME 9.5 fL (7.4-11.0); MONOCYTES # (AUTO) 0.5 x10^3/uL (0.3-0.8); MONOCYTES % (AUTO) 5.8 % (0.0-13.0); NEUTROPHILS # (AUTO) 3.7 x10^3/uL (2.2-4.8); NEUTROPHILS % (AUTO) 47.7 % (42.0-75.0); PLATELET COUNT 392 X10^3/uL (150.0-450.0); RED BLOOD COUNT 3.74 X10^6/uL (3.5-5.4); WHITE BLOOD COUNT 7.8 X10^3/uL (3.6-10.0)
[2017-12-15 06:05] LABS: ALANINE AMINOTRANSFERASE 34 Units/L (12-78); ALBUMIN 3.5 g/dL (3.4-5.0); ALKALINE PHOSPHATASE 32 Units/L (46-116); ASPARTATE AMINO TRANSFERASE 22 Units/L (15-37); BLOOD UREA NITROGEN 7 mg/dL (7-18); CARBON DIOXIDE 19.7 mmol/L (21-32); CHLORIDE 109 mmol/L (98-107); SODIUM 142 mmol/L (136-145); TOTAL PROTEIN 6.5 g/dL (6.4-8.2); eGFR NON BLACK RACES > 60 (>60)
[2017-12-15] MEDS ORDERED: K-DUR TAB 20 MEQ PO PRN (06:24)
[2017-12-15] MEDS ORDERED: K-RIDER 10 MEQ/NS 100 ML 10 MEQ/100 ML BAG IV PRN (06:24)
[2017-12-15] MEDS ORDERED: POTASSIUM CHLORIDE LIQ 20 MEQ UDC PO PRN (06:24)
[2017-12-15] MEDS ORDERED: POTASSIUM CHL 40 MEQ/NS 0.45% 500 ML IV PRN (06:24)
[2017-12-15] MEDS ORDERED: POTASSIUM CHL 60 MEQ/NS 0.45% 500 ML IV PRN (06:24)
[2017-12-15] MEDS ORDERED: KLOR-CON PO PRN (06:24)
[2017-12-15] MEDS ORDERED: MICRO K EXTEN CAP 10 MEQ PO PRN (06:24)
[2017-12-15] MEDS: ZOFRAN INJ 4 MG VIAL IVP PRN (08:55)
[2017-12-15] MEDS: NS 1000 ML 1,000 ML IV SCH ×4 (08:57→21:10)
[2017-12-15] MEDS: ROCEPHIN VIAL 1 GRAM IVP SCH (08:58)
[2017-12-15] MEDS: PHENERGAN INJ 25 MG IV PRN ×3 (09:31→21:21)
[2017-12-15] MEDS ORDERED: ANTIVERT TAB 25 MG PO PRN (10:06)
[2017-12-15] MEDS ORDERED: PHENERGAN TAB 25 MG PO PRN (10:06)
[2017-12-15] MEDS ORDERED: [UNRECOGNIZED DRUG - OTHER] PO SCH (10:15)
[2017-12-15] MEDS ORDERED: MOMETASONE FORMOTEROL PO SCH (10:15)
[2017-12-15] MEDS ORDERED: CHOLECALCIFEROL PO SCH (10:15)
[2017-12-15] MEDS ORDERED: ZOLOFT PO ONE (11:09)
[2017-12-15] MEDS: SYNTHROID 75 mcg TAB PO SCH (11:16)
[2017-12-15] MEDS: ZANTAC PO SCH (11:16)
[2017-12-15] MEDS: ZOLOFT PO SCH ×2 (11:16→13:52)
[2017-12-15] MEDS: ZANAFLEX PO SCH ×3 (11:16→21:09)
[2017-12-15] MEDS: TOPROL XL PO SCH (11:16)
[2017-12-15] MEDS: TRICOR TAB 160 MG PO SCH (11:16)
[2017-12-15] MEDS: PROTONIX TAB 40 MG PO SCH ×2 (11:16→21:09)
[2017-12-15] MEDS: ASPIRIN EC 81 MG PO SCH (11:17)
[2017-12-15] MEDS: LOVAZA PO SCH ×2 (11:17→21:09)
[2017-12-15] MEDS: FOLIC ACID TAB 1 MG PO SCH (11:17)
[2017-12-15] MEDS: SINGULAIR TAB 10 MG PO SCH (11:17)
[2017-12-15] MEDS: NORCO 7.5/325 MG TAB PO PRN ×2 (11:22→21:08)
[2017-12-15] MEDS ORDERED: MORPHINE SULFATE INJ 2 MG INJ IVP PRN (11:33)
[2017-12-15] MEDS: TRAMADOL PO SCH (13:51)
[2017-12-15] MEDS: TOPIRAMATE PO SCH (13:52)
[2017-12-15] MEDS: NEURONTIN TAB 600 MG PO SCH ×2 (15:11→21:08)
[2017-12-15] MEDS ORDERED: LEVOCETIRIZINE PO SCH (21:00)
[2017-12-15] MEDS ORDERED: AMBIEN PO SCH (21:00)
[2017-12-16 05:14] LABS: BASOPHILS # (AUTO) 0.1 X10^3/uL (0.0-0.1); BASOPHILS % (AUTO) 1.1 % (0.2-1.0); EOSINOPHILS # (AUTO) 0.3 x10^3/uL (0.0-0.2); EOSINOPHILS % (AUTO) 3.5 % (0.9-2.9); HEMATOCRIT 34.5 % (36.0-47.0); HEMOGLOBIN 11.7 g/dL (12.0-16.0); LYMPHOCYTES # (AUTO) 3.3 X10^3/uL (1.3-2.9); LYMPHOCYTES % (AUTO) 43.5 % (21.0-51.0); MEAN CORPUSCULAR HEMOGLOBIN 31.6 pg (27.0-34.0); MEAN CORPUSCULAR VOLUME 92.7 fL (80.0-100.0); MEAN PLATELET VOLUME 9.5 fL (7.4-11.0); MONOCYTES # (AUTO) 0.4 x10^3/uL (0.3-0.8); MONOCYTES % (AUTO) 5.4 % (0.0-13.0); NEUTROPHILS # (AUTO) 3.6 x10^3/uL (2.2-4.8); NEUTROPHILS % (AUTO) 46.5 % (42.0-75.0); PLATELET COUNT 376 X10^3/uL (150.0-450.0); RED BLOOD COUNT 3.72 X10^6/uL (3.5-5.4); RED CELL DISTRIBUTION WIDTH 14.2 % (11.6-16.5); WHITE BLOOD COUNT 7.7 X10^3/uL (3.6-10.0)
[2017-12-16 05:28] LABS: CARBON DIOXIDE 19.4 mmol/L (21-32); CHLORIDE 110 mmol/L (98-107); SODIUM 142 mmol/L (136-145)
[2017-12-16 05:29] LABS: ALANINE AMINOTRANSFERASE 31 Units/L (12-78); ALBUMIN 3.5 g/dL (3.4-5.0); ALKALINE PHOSPHATASE 28 Units/L (46-116); ASPARTATE AMINO TRANSFERASE 24 Units/L (15-37); BLOOD UREA NITROGEN 6 mg/dL (7-18); CALCIUM 8.3 mg/dL (8.5-10.1); CREATININE 0.96 mg/dL (0.55-1.02); TOTAL PROTEIN 6.7 g/dL (6.4-8.2); eGFR NON BLACK RACES > 60 (>60)
[2017-12-16] MEDS: NS 1000 ML 1,000 ML IV SCH (06:27)
[2017-12-16] MEDS: NEURONTIN TAB 600 MG PO SCH (06:27)
[2017-12-16] MEDS: ZANAFLEX PO SCH (06:28)
[2017-12-16] MEDS: PROTONIX TAB 40 MG PO SCH (09:10)
[2017-12-16] MEDS: ZANTAC PO SCH (09:10)
[2017-12-16] MEDS: ASPIRIN EC 81 MG PO SCH (09:10)
[2017-12-16] MEDS: TRICOR TAB 160 MG PO SCH (09:10)
[2017-12-16] MEDS: TOPROL XL PO SCH (09:10)
[2017-12-16] MEDS: SYNTHROID 75 mcg TAB PO SCH (09:10)
[2017-12-16] MEDS: FOLIC ACID TAB 1 MG PO SCH (09:11)
[2017-12-16] MEDS: LOVAZA PO SCH (09:11)
[2017-12-16] MEDS: TRAMADOL PO SCH (09:11)
[2017-12-16] MEDS: TOPIRAMATE PO SCH (09:11)
[2017-12-16] MEDS: ROCEPHIN VIAL 1 GRAM IVP SCH (09:11)
[2017-12-16] MEDS: SINGULAIR TAB 10 MG PO SCH (09:11)
[2017-12-16] MEDS: NORCO 7.5/325 MG TAB PO PRN (12:39)
[2017-12-16 13:37] VITALS: BP 97/57
[2017-12-16] MEDS ORDERED: ZOLOFT PO SCH (21:00)
--- NOTE | 2017-12-29 06:07 | DR.UPDATE ---
H&P Update History and Physical Update: History and Physical reviewed and patient examined. Changes noted: Yes with the following: WAS SEEN IN THE OFFICE TODAY, SHE REPORTED SYMPTOMS OF NAUSEA, VOMITING, CHILLS, AND HYPOTENSION. SHE WAS ADMITTED FOR FURTHER EVALUATION AND TREATMENT OF GASTROENTERITIS AND HYPOTENSION. A H&P WAS COMPLETED PRIOR TO ADMISSION. PATIENT HAS BEEN SEEN AND EXAMINED WITH NO CHANGES NOTED TO H&P.
--- NOTE | 2017-12-29 06:17 | PCM.PROG ---
Progress Note - Progress Note for Day of Date of Exam: 12/15/17 - Subjective Subjective: WAS ADMITTED FOR GASTROENTERITIS, NAUSEA AND VOMITING, AND HYPOTENSION. TODAY, SHE IS ALERT AND ORIENTED, LYING IN BED ON MORNING ROUNDS. SHE CONTINUES WITH COMPLAINTS OF ABDOMINAL PAIN, NAUSEA, AND VOMITING. ON EXAMINATION, HEART IS REGULAR IN RATE AND RHYTHM. BILATERAL LUNGS ARE NOTED WITH DIMINISHED LUNG SOUNDS THROUGHOUT. ABDOMEN IS ROUND, SOFT, AND NOTED WITH MILD, DIFFUSE TENDERNESS. HYPERACTIVE BOWEL SOUNDS NOTED IN ALL QUADRANTS. HER VITALS THIS MORNING ARE 98.0-77-18-98%-107/61. LABS WERE OBTAINED. ABNORMAL LAB VALUES INCLUDE THE FOLLOWING: HGB 11.7, HCT 34.5, POTASSIUM 3.3, CHLORIDE 109, CARBON DIOXIDE 19.7, CALCIUM 8.0, ALK PHOS 32. SHE IS CURRENTLY RECEIVING NORMAL SALINE AT 100ML/HR, ZOFRAN 4MG IV Q6H PRN, ZOFRAN 4MG IV Q6H PRN, PHENERGAN 12.5MG IV Q6H PRN. TODAY, WE WILL CONTINUE WITH CURRENT PLAN OF CARE AND RESUME HOME MEDICATIONS. OTHERWISE, WE WILL FOLLOW UP WITH AM LABS AND CONTINUE TO MONITOR PATIENT. - Past Medical Family Social History Past Med/Fam/Surg Hx: No changes since H&P Allergies: Allergies albuterol [From DuoNeb] Allergy (Verified 12/26/17 13:36) clarithromycin [From Biaxin] Allergy (Verified 12/26/17 13:36) ipratropium [From DuoNeb] Allergy (Verified 12/26/17 13:36) levalbuterol [From Xopenex] Allergy (Verified 12/26/17 13:36) topiramate [From Topamax] Allergy (Verified 12/26/17 13:36) - Review of Systems ROS: No change since H&P - Vital Signs and I&O's Vital Signs: Temperature 98.2 F Pulse Rate [Right Radial] 74 Respiratory Rate 18 Blood Pressure [Right Arm] 118/72 Blood Pressure [Left Arm] 97/57 Blood Pressure 135/78 O2 Sat by Pulse Oximetry 100 - Physical Exam Oriented: Normal Eyes: Normal Ear: Normal Nose: Normal Throat: Normal Respiratory: Generalized, Diminished Cardiovascular: Normal : Normal Auscultation: Bowel Sounds: Increased Palpation: Normal Tenderness: Diffuse, Mild. negative: Rebound, Guarding, Rigidity Skin: Normal Musculoskeletal: Normal Psychiatric: Normal Mood Description: Calm Affect: Normal Speech Pattern: Clear, Appropriate - Laboratory and Diagnostics Result Diagrams: 12/16/17 04:30 12/16/17 04:30 Labs: Laboratory WBC 7.7 X10^3/uL (3.6-10.0) 12/16/17 04:30 RBC 3.72 X10^6/uL (3.5-5.4) 12/16/17 04:30 Hgb 11.7 g/dL (12.0-16.0) L 12/16/17 04:30 Hct 34.5 % (36.0-47.0) L 12/16/17 04:30 MCV 92.7 fL (80.0-100.0) 12/16/17 04:30 MCH 31.6 pg (27.0-34.0) 12/16/17 04:30 MCHC 34.0 g/dL (33.0-35.0) 12/16/17 04:30 RDW 14.2 % (11.6-16.5) 12/16/17 04:30 Plt Count 376 X10^3/uL (150.0-450.0) 12/16/17 04:30 MPV 9.5 fL (7.4-11.0) 12/16/17 04:30 Neut % (Auto) 46.5 % (42.0-75.0) 12/16/17 04:30 Lymph % (Auto) 43.5 % (21.0-51.0) 12/16/17 04:30 [place] % (Auto) 5.4 % (0.0-13.0) 12/16/17 04:30 Eos % (Auto) 3.5 % (0.9-2.9) H 12/16/17 04:30 Baso % (Auto) 1.1 % (0.2-1.0) H 12/16/17 04:30 Neut # (Auto) 3.6 x10^3/uL (2.2-4.8) 12/16/17 04:30 Lymph # (Auto) 3.3 X10^3/uL (1.3-2.9) H 12/16/17 04:30 [place] # (Auto) 0.4 x10^3/uL (0.3-0.8) 12/16/17 04:30 Eos # (Auto) 0.3 x10^3/uL (0.0-0.2) H 12/16/17 04:30 Baso # (Auto) 0.1 X10^3/uL (0.0-0.1) 12/16/17 04:30 Absolute Nucleated RBC 0.0 /100WBC 12/16/17 04:30 Sodium 142 mmol/L (136-145) 12/16/17 04:30 Corrected Sodium TNP 12/16/17 04:30 Potassium 4.0 mmol/L (3.5-5.1) 12/16/17 04:30 Chloride 110 mmol/L (98-107) H 12/16/17 04:30 Carbon Dioxide 19.4 mmol/L (21-32) L 12/16/17 04:30 BUN 6 mg/dL (7-18) L 12/16/17 04:30 Creatinine 0.96 mg/dL (0.55-1.02) 12/16/17 04:30 Est GFR (MDRD) Af Amer > 60 (>60) 12/16/17 04:30 Est GFR (MDRD) Non-Af > 60 (>60) 12/16/17 04:30 Glucose 86 mg/dL (65-99) 12/16/17 04:30 Calcium 8.3 mg/dL (8.5-10.1) L 12/16/17 04:30 Corrected Calcium TNP 12/16/17 04:30 Magnesium 1.8 mg/dL (1.7-2.9) 12/15/17 04:51 Total Bilirubin 0.40 mg/dL (0.2-1.0) 12/16/17 04:30 AST 24 Units/L (15-37) 12/16/17 04:30 ALT 31 Units/L (12-78) 12/16/17 04:30 Alkaline Phosphatase 28 Units/L (46-116) L 12/16/17 04:30 Total Protein 6.7 g/dL (6.4-8.2) 12/16/17 04:30 Albumin 3.5 g/dL (3.4-5.0) 12/16/17 04:30 Globulin 3.2 g/dL (2.5-4.5) 12/16/17 04:30 Albumin/Globulin Ratio 1.1 Ratio (1.1-2.1) 12/16/17 04:30 Specimen Type Random urine 12/14/17 12:18 Urine Color Dark yellow (YELLOW) 12/14/17 12:18 Urine Appearance Hazy (CLEAR) 12/14/17 12:18 Urine pH 6.0 (5.0 - 8.0) 12/14/17 12:18 Ur Specific [employer] 1.020 (1.000-1.030) 12/14/17 12:18 Urine Protein 2+ (NEGATIVE) 12/14/17 12:18 Urine Glucose (UA) Negative (NEGATIVE) 12/14/17 12:18 Urine Ketones Negative (NEGATIVE) 12/14/17 12:18 Urine Occult Blood Negative (NEGATIVE) 12/14/17 12:18 Urine Nitrite Negative (NEGATIVE) 12/14/17 12:18 Urine Bilirubin 1+ (NEGATIVE) 12/14/17 12:18 Urine Urobilinogen 1+ (NORMAL) 12/14/17 12:18 Ur Leukocyte Esterase 1+ (NEGATIVE) 12/14/17 12:18 Urine RBC None seen /HPF (NONE SEEN) 12/14/17 12:18 Urine WBC 3-5 /HPF (NONE SEEN) 12/14/17 12:18 Ur Squamous Epith Cells Many /HPF (NEGATIVE) 12/14/17 12:18 Urine Bacteria Trace /HPF (NEGATIVE) 12/14/17 12:18 Ur Culture Indicated? No/not indicated 12/14/17 12:18 - Plan (1) Gastroenteritis Status: Acute Plan: NORMAL SALINE AT 100ML/HR, ZOFRAN IV, PHENERGAN IV, CONTINUE TO MONITOR (2) Nausea & vomiting Status: Acute Qualifiers: Vomiting type: unspecified Vomiting Intractability: intractable Qualified Code(s): R11.2 - Nausea with vomiting, unspecified Plan: ZOFRAN IV PRN, PHENERGAN IV PRN, CONTINUE TO MONITOR (3) Hypotension Status: Acute Qualifiers: Hypotension type: hypotension due to hypovolemia Qualified Code(s): I95.89 - Other hypotension; E86.1 - Hypovolemia Plan: NORMAL SALINE AT 100ML/HR, CONTINUE TO MONITOR
--- NOTE | 2018-01-30 23:03 | DR.CARTERD ---
- Discharge Summary for: Discharge Summary for Date of:: 12/16/17 - Admission Date Date of Admission: 12/14/17 - Admission Diagnoses Admission Diagnosis: (1) Gastroenteritis (2) Hypotension (3) Nausea & vomiting - Discharge Date Discharge Date: 12/16/17 - Discharge Diagnoses Discharge Diagnosis: (1) Gastroenteritis (2) Hypotension (3) Nausea & vomiting - Hospital Course Hospital Course: DAY ONE, WAS SEEN IN THE OFFICE TODAY, SHE REPORTED SYMPTOMS OF NAUSEA, VOMITING, CHILLS, AND HYPOTENSION. SHE WAS ADMITTED FOR FURTHER EVALUATION AND TREATMENT OF GASTROENTERITIS AND HYPOTENSION. VITAL SIGNS ON ARRIVAL WERE TEMP. 97.5, PULSE 65, RESP. 18, O2 SAT. 100% NC/2L, BP 102/54. ABNORMAL LAB VALUES WERE CREATININE 1.16, GFR (NON) 55, GLUCOSE 114, ALKALINE PHOSPHATASE 31. URINE SAMPLE WAS COLLECTED AND REVEALED: COLOR DARK YELLOW, APPEARANCE HAZY, PROTEIN 2+, BILIRUBIN 1+, UROBILINOGEN 1+, LEUKOCYTE ESTERASE 1+, WBC 3-5, SQUAMOUS EPITH CELLS MANY, BACTERIA TRACE. WE CONTINUED TO MONITOR PATIENT. DAY TWO, SHE WAS ALERT AND ORIENTED, LYING IN BED ON MORNING ROUNDS. SHE CONTINUED WITH COMPLAINTS OF ABDOMINAL PAIN, NAUSEA, AND VOMITING. ON EXAMINATION, HEART WAS REGULAR IN RATE AND RHYTHM. BILATERAL LUNGS WERE NOTED WITH DIMINISHED LUNG SOUNDS THROUGHOUT. ABDOMEN IS ROUND, SOFT, AND NOTED WITH MILD, DIFFUSE TENDERNESS. HYPERACTIVE BOWEL SOUNDS NOTED IN ALL QUADRANTS. HER VITALS THIS MORNING WERE 98.0-77-18-98%-107/61. LABS WERE OBTAINED. ABNORMAL LAB VALUES INCLUDED THE FOLLOWING: HGB 11.7, HCT 34.5, POTASSIUM 3.3, CHLORIDE 109, CARBON DIOXIDE 19.7, CALCIUM 8.0, ALK PHOS 32. SHE WAS CURRENTLY RECEIVING NORMAL SALINE AT 100ML/HR, ZOFRAN 4MG IV Q6H PRN, ZOFRAN 4MG IV Q6H PRN, PHENERGAN 12.5MG IV Q6H PRN. WE CONTINUED WITH CURRENT PLAN OF CARE AND RESUMED HOME MEDICATIONS. WE FOLLOWED UP WITH AM LABS AND CONTINUED TO MONITOR PATIENT. DAY THREE, PATIENT FEELING MUCH BETTER. SHE DENIED ABDOMINAL PAIN, NAUSEA, AND VOMITING. LABS WERE WITHIN NORMAL LIMITS AND VITAL SIGNS WERE STABLE. WE PLANNED FOR DISCHARGE. INSTRUCTIONS FOR MEDICATIONS AND FOLLOW UP WERE DISCUSSED WITH PATIENT AND FAMILY, BOTH VOICED UNDERSTANDING. PATIENT WAS DISCHARGED HOME IN STABLE CONDITION WITH FAMILY. - Discharge Medications Discharge Medications: Home Medication List aspirin [Aspir-Low] 1 tab PO DAILY 12/14/17 [History] tyxetpimkdoljww-xtohxfjhx-UA 2 teaspoon PO Q4H PRN 12/14/17 [History] cholecalciferol (vitamin D3) 1 cap PO WEEKLY 12/14/17 [History] levothyroxine 1 tab PO DAILY 12/14/17 [History] omega-3 acid ethyl esters 2 cap PO BID 12/14/17 [History] promethazine 1 tab PO Q4H PRN 12/14/17 [History] topiramate [Trokendi XR] 1 cap PO DAILY 12/14/17 [History] tramadol 1 tab PO DAILY 12/14/17 [History] Prescriptions: Ambulatory Orders Misc Home Med [Patient's Home Medication] 1 tab PO DAILY 11/14/16 fenofibrate 1 tab PO DAILY 11/14/16 folic acid 1 tab PO DAILY 11/14/16 gabapentin 1 tab PO TID 11/14/16 levocetirizine [Xyzal] 1 tab PO HS 11/14/16 meclizine 1 tab PO TID PRN 11/14/16 meloxicam 1 tab PO DAILY 11/14/16 metoprolol succinate 1 tab PO DAILY 11/14/16 mometasone-formoterol [Dulera] 1 puff PO BID 11/14/16 montelukast 1 tab PO DAILY 11/14/16 ukfmwyum-mpi-WN-herbal no.245 [Alive Women's Gummy Vitamins] 1 tab PO DAILY 11/14/16 ondansetron 1 tab PO Q4H PRN 11/14/16 pantoprazole 1 tab PO BID 11/14/16 ranitidine HCl 1 tab PO DAILY 11/14/16 sertraline 1 tab PO DAILY 11/14/16 tizanidine 1 tab PO TID 11/14/16 zolpidem 1 tab PO HS 11/14/16 ibuprofen 800 mg PO Q8H #14 tab 12/26/17 - Discharge Disposition Discharge Disposition: PATIENT TO FOLLOW UP IN OUR OFFICE IN ONE WEEK.
== END 2017-12-16 14:57 | disposition home or self-care (01) ==
LOC: MED/SURG
PROVIDERS: ADMIT Internal Medicine; ATTEND Internal Medicine
DX: R10.84 Generalized abdominal pain; I95.89 Other hypotension; R53.83 Other fatigue; R11.2 Nausea with vomiting, unspecified; I10 Essential (primary) hypertension; K52.89 Other specified noninfective gastroenteritis and colitis; R55 Syncope and collapse; Z79.899 Other long term (current) drug therapy
CPT/HCPCS: 36415; 71010; 71045; 80053; 81001; 83735; 85025; 96367; 96372; 96374; A4222; G0378; J0696; J2270; J2405; J2550; J3490; J7030

== ENCOUNTER 2019-12-11 17:39 | Observation (INO) ==
[2019-12-11] MEDS ORDERED: DUONEB 0.5 MG/3 MG (3 mL) NEB SCH (18:30)
--- NOTE | 2019-12-11 18:44 | RAD ---
HISTORYSOB, PNEUMONIASTUDYCHEST, 1 [id number] at 2:28 p.m.FINDINGSThe heart is normal. The pulmonary vessels are normal. No consolidation or effusion is seen. The bones are intact.IMPRESSIONStable chest with no acute abnormality seen.Electronically signed by: EVELIO LITTLE (Dec 11, 2019 18:43:59)
[2019-12-11 18:48] LABS: ABG BASE EXCESS -4.5 mmol/L (-2.0-2.0); ABG HCO3 18.6 mmol/L (22-26)
[2019-12-11 18:57] LABS: BASOPHILS # (AUTO) 0.2 X10^3/uL (0.0-0.1); BASOPHILS % (AUTO) 1.7 % (0.2-1.0); EOSINOPHILS # (AUTO) 0.3 x10^3/uL (0.0-0.2); EOSINOPHILS % (AUTO) 2.3 % (0.9-2.9); HEMATOCRIT 35.1 % (36.0-47.0); HEMOGLOBIN 11.5 g/dL (12.0-16.0); LYMPHOCYTES # (AUTO) 2.4 X10^3/uL (1.3-2.9); MEAN CORPUSCULAR HEMOGLOBIN 30.4 pg (27.0-34.0); MEAN CORPUSCULAR HGB CONC 32.9 g/dL (33.0-35.0); MEAN CORPUSCULAR VOLUME 92.6 fL (80.0-100.0); MEAN PLATELET VOLUME 8.6 fL (7.4-11.0); MONOCYTES # (AUTO) 0.8 x10^3/uL (0.3-0.8); MONOCYTES % (AUTO) 6.6 % (0.0-13.0); NEUTROPHILS % (AUTO) 68.4 % (42.0-75.0); PLATELET COUNT 610 X10^3/uL (150.0-450.0); RED BLOOD COUNT 3.79 X10^6/uL (3.5-5.4); WHITE BLOOD COUNT 11.7 X10^3/uL (3.6-10.0)
[2019-12-11 19:09] LABS: ALANINE AMINOTRANSFERASE 24 Units/L (12-78); ALBUMIN 3.5 g/dL (3.4-5.0); ALKALINE PHOSPHATASE 64 Units/L (46-116); ASPARTATE AMINO TRANSFERASE 33 Units/L (15-37); BLOOD UREA NITROGEN 21 mg/dL (7-18); CALCIUM 9.3 mg/dL (8.5-10.1); CARBON DIOXIDE 24.4 mmol/L (21-32); CHLORIDE 100 mmol/L (98-107); CREATININE 1.49 mg/dL (0.55-1.02); SODIUM 137 mmol/L (136-145); TOTAL PROTEIN 9.3 g/dL (6.4-8.2); eGFR NON BLACK RACES 41 (>60)
[2019-12-11 19:16] LABS: PLATELET MORPHOLOGY COMMENT NORMAL (NORMAL)
[2019-12-11 19:25] LABS: CKMB % 0.5 % (<4); CREATINE KINASE 239 Units/L (26-192); CREATINE KINASE MB 1.1 ng/mL (0-4.0); TROPONIN I < 0.02 ng/mL (0-1.5)
[2019-12-11] MEDS ORDERED: NS 1/2 1000 ML IV 1,000 ML IV ONE (19:32)
[2019-12-11] MEDS: NS 1/2 1000 ML IV 1,000 ML IV SCH (20:32)
[2019-12-11] MEDS: ROBITUSSIN DM PO SCH ×2 (20:55→20:56)
[2019-12-11] MEDS: VSL#3 PO SCH (20:56)
[2019-12-11] MEDS ORDERED: PULMICORT NEB TX 0.5 MG NEB SCH (21:00)
[2019-12-11] MEDS ORDERED: LEVAQUIN PREMIX IV 750 MG 750 MG/150 ML BAG IV SCH (21:00)
[2019-12-11] MEDS ORDERED: VENTOLIN or PROAIR HFA ONE (21:07)
[2019-12-11] MEDS: VENTOLIN or PROAIR HFA IN SCH (21:35)
[2019-12-11] MEDS ORDERED: FORTAZ or TAZICEF VIAL INJ 1 G in NS 100 ML IV + SPIKE MINIBAG* 100 ML IV SCH (22:00)
[2019-12-11] MEDS ORDERED: TYLENOL 325 MG TAB PO ONE (22:08)
[2019-12-11] MEDS ORDERED: ZOFRAN INJ 4 MG VIAL ONE (22:25)
[2019-12-11] MEDS: ZOFRAN INJ 4 MG VIAL IVP PRN (22:34)
[2019-12-11 22:50] LABS: CKMB % 0.5 % (<4); CREATINE KINASE 224 Units/L (26-192); CREATINE KINASE MB < 1.0 ng/mL (0-4.0); TROPONIN I < 0.02 ng/mL (0-1.5)
[2019-12-11 23:12] VITALS: BMI 24.9
[2019-12-11] MEDS: TUSSIONEX PENNKINETIC SUSP PO PRN (23:45)
[2019-12-11] MEDS: AMBIEN PO PRN (23:45)
[2019-12-11] MEDS: TYLENOL 325 MG TAB PO PRN (23:45)
[2019-12-12] MEDS: LEVAQUIN PREMIX IV 750 MG 750 MG/150 ML BAG IV SCH (00:13)
[2019-12-12] MEDS ORDERED: PHENERGAN INJ 25 MG IM ONE (01:15)
[2019-12-12] MEDS: PHENERGAN INJ 25 MG IM PRN ×2 (01:33→08:21)
[2019-12-12 02:42] LABS: CKMB % 0.5 % (<4); CREATINE KINASE 224 Units/L (26-192); CREATINE KINASE MB < 1.0 ng/mL (0-4.0); TROPONIN I < 0.02 ng/mL (0-1.5)
[2019-12-12] MEDS: ZOFRAN INJ 4 MG VIAL IVP PRN ×2 (05:14→12:11)
[2019-12-12 05:18] LABS: BASOPHILS % (AUTO) 0.3 % (0.2-1.0); EOSINOPHILS # (AUTO) 0.2 x10^3/uL (0.0-0.2); EOSINOPHILS % (AUTO) 2.6 % (0.9-2.9); HEMATOCRIT 30.3 % (36.0-47.0); HEMOGLOBIN 10.3 g/dL (12.0-16.0); LYMPHOCYTES # (AUTO) 2.2 X10^3/uL (1.3-2.9); LYMPHOCYTES % (AUTO) 22.6 % (21.0-51.0); MEAN CORPUSCULAR HEMOGLOBIN 31.5 pg (27.0-34.0); MEAN CORPUSCULAR HGB CONC 34.2 g/dL (33.0-35.0); MEAN CORPUSCULAR VOLUME 92.2 fL (80.0-100.0); MEAN PLATELET VOLUME 9.1 fL (7.4-11.0); MONOCYTES # (AUTO) 0.7 x10^3/uL (0.3-0.8); MONOCYTES % (AUTO) 7.8 % (0.0-13.0); NEUTROPHILS # (AUTO) 6.4 x10^3/uL (2.2-4.8); NEUTROPHILS % (AUTO) 66.7 % (42.0-75.0); PLATELET COUNT 483 X10^3/uL (150.0-450.0); RED BLOOD COUNT 3.28 X10^6/uL (3.5-5.4); RED CELL DISTRIBUTION WIDTH 14.6 % (11.6-16.5); WHITE BLOOD COUNT 9.6 X10^3/uL (3.6-10.0)
[2019-12-12 05:26] LABS: ALANINE AMINOTRANSFERASE 22 Units/L (12-78); ALBUMIN 2.8 g/dL (3.4-5.0); ALKALINE PHOSPHATASE 52 Units/L (46-116); ASPARTATE AMINO TRANSFERASE 31 Units/L (15-37); BLOOD UREA NITROGEN 16 mg/dL (7-18); CARBON DIOXIDE 21.6 mmol/L (21-32); CHLORIDE 105 mmol/L (98-107); CREATININE 1.27 mg/dL (0.55-1.02); SODIUM 140 mmol/L (136-145); TOTAL PROTEIN 7.9 g/dL (6.4-8.2); eGFR NON BLACK RACES 49 (>60)
[2019-12-12] MEDS: ROBITUSSIN DM PO SCH ×4 (08:24→21:20)
[2019-12-12] MEDS: NS 1/2 1000 ML IV 1,000 ML IV SCH ×2 (08:24→12:09)
[2019-12-12] MEDS: VSL#3 PO SCH (08:24)
[2019-12-12] MEDS: FORTAZ or TAZICEF VIAL INJ 1 G in NS 100 ML IV + SPIKE MINIBAG* 100 ML IV SCH ×2 (08:24→21:19)
[2019-12-12] MEDS: VENTOLIN or PROAIR HFA IN SCH ×4 (09:10→21:53)
[2019-12-12] MEDS: TYLENOL 325 MG TAB PO PRN (09:40)
[2019-12-12] MEDS ORDERED: REMDESIVIR (INVESTIGATIONAL DRUG GS-5734) 200 MG in NS 250 ML IV 250 ML IV NR (10:00)
--- NOTE | 2019-12-12 11:17 | DR.UPDATE ---
H&P Update History and Physical Update: History and Physical reviewed and patient examined. Changes noted: Yes with the following: PRESENTED TO THE HOSPITAL A DIRECT ADMISSION FOR TREATMENT OF ACUTE BRONCHITIS AND SUSPECTED COVID-19. SHE HAS HAD COMPLAINTS OF COUGH, FEVER, SHORTNESS OF BREATH, NAUSEA, DIARRHEA, AND TIGHTNESS IN CHEST X 9 DAYS. SHE HAS COMPLETED A REGIMEN OF ZITHROMAX 500MG PO DAILY X 5 DAYS, A MEDROL DOSEPACK, AND PLAQUENIL 200MG PO BID X 5 DAYS. SHE REPORTS WORSENING OF SYMPTOMS DESPITE COMPLIANCE WITH MEDICATIONS. SHE WAS SWABBED FOR COVID-19 ON 12/03/19. SHE WAS NEGATIVE AT THAT TIME. ON ARRIVAL TO THE HOSPITAL, VITALS WERE 98.4-76-22-100%-116/57. LABS WERE OBTAINED. ABNORMAL LAB VALUES INCLUDE THE FOLLOWING: WBC 11.7, HGB 11.5, HCT 35.1, PLT COUNT 610, BUN 21, CREATININE 1.49, FERRITIN 1219, CRP 88.30, TOTAL PROTEIN 9.3, GLOBULIN 5.8, CREATINE KINASE 239. A REPEAT COVID-19 SWAB WAS COLLECTED AND SENT OUT. BLOOD AND SPUTUM CULTURES WERE SET UP. AN ABG WAS OBTAINED AND REVEALED: PH 7.430, PC02 28, P02 105, HC03 18.6, 02 SAT 98, BASE EXCESS -4.5, FI02 21.0 A CHEST XRAY WAS OBTAINED AND REVEALED: The heart is normal. The pulmonary vessels are normal. No consolidation or effusion is seen. The bones are intact. EKG REVEALED: SINUS RHYTHM WITH HR 75. SHE WAS STARTED ON FORTAZ 1G IV BID, LEVAQUIN 750MG IV Q48H, 1/2NS AT 75 ML/HR, REMDESIVIR 200MG IV X 1 DOSE, THEN 100MG IV DAILY, TUSSIONEX 5ML PO Q12H PRN, ROBITUSSIN DM 10 ML PO QID, SOLU- MEDROL 80MG IV Q8H, ZOFRAN 4MG IV Q6H PRN, PHENERGAN 12.5MG IM Q6H PRN, ALBUTEROL INHALER 2 PUFFS INH QID, AND TYLENOL 650MG PO Q6H PRN. OTHERWISE, WE PLAN TO FOLLOW UP WITH AM LABS AND CHEST XRAY AND CONTINUE TO MONITOR. Prescription drug monitoring program results: PDMP reviewed and no concerns identified H&P Reviewed: Yes Patient was examined?: Yes
[2019-12-12] MEDS ORDERED: ZOLOFT PO ONE (12:02)
[2019-12-12] MEDS ORDERED: NS 1/2 1000 ML IV 1,000 ML IV ONE (12:03)
[2019-12-12] MEDS: ZINC SULFATE PO SCH (12:10)
[2019-12-12] MEDS: TUSSIONEX PENNKINETIC SUSP PO PRN (12:10)
[2019-12-12] MEDS: PEPCID TAB 20 MG PO SCH (12:10)
[2019-12-12] MEDS: PROTONIX TAB 40 MG PO SCH ×2 (12:10→21:20)
[2019-12-12] MEDS: MOBIC TAB 15 MG PO SCH (12:10)
[2019-12-12] MEDS: ASPIRIN EC 81 MG PO SCH (12:10)
[2019-12-12] MEDS: LOVAZA PO SCH ×2 (12:10→21:20)
[2019-12-12] MEDS: FOLIC ACID TAB 1 MG PO SCH (12:10)
[2019-12-12] MEDS: TRICOR TAB 160 MG PO SCH (12:11)
[2019-12-12] MEDS: SINGULAIR TAB 10 MG PO SCH (12:11)
[2019-12-12] MEDS: ZOLOFT PO SCH (12:11)
[2019-12-12] MEDS: COZAAR PO SCH (12:11)
[2019-12-12] MEDS: SYNTHROID 75 mcg TAB PO SCH (12:11)
[2019-12-12] MEDS: NEURONTIN TAB 600 MG PO SCH ×2 (12:11→21:20)
[2019-12-12] MEDS: TYLENOL #3 TAB (W/CODEINE) PO PRN (14:59)
[2019-12-12] MEDS: ZANAFLEX PO SCH (15:00)
[2019-12-12] MEDS: LOVENOX INJ 30 MG SYR SC SCH (15:01)
[2019-12-12 16:08] LABS: CRYPTOSPORIDIUM PARVUM ANTIGEN NEGATIVE (NEGATIVE); GIARDIA LAMBLIA ANTIGEN NEGATIVE (NEGATIVE)
[2019-12-12] MEDS ORDERED: CRESTOR TAB 10 MG PO ONE (19:59)
[2019-12-12] MEDS ORDERED: SOLU-Medrol 40 MG VIAL ONE (20:01)
[2019-12-12] MEDS ORDERED: PATIENT'S HOME MEDICATION (Levocetirizine 5 MG) PO SCH (21:00)
[2019-12-12] MEDS: CRESTOR TAB 10 MG PO SCH (21:17)
[2019-12-12] MEDS: SOLU-Medrol 40 MG VIAL IVP SCH (21:18)
[2019-12-12] MEDS: TOPIRAMATE 200 MG PO SCH (21:21)
[2019-12-12] MEDS: AMBIEN PO PRN (23:10)
[2019-12-13] MEDS: NS 1/2 1000 ML IV 1,000 ML IV SCH ×3 (00:27→15:47)
[2019-12-13] MEDS: TYLENOL #3 TAB (W/CODEINE) PO PRN (02:00)
[2019-12-13] MEDS: TUSSIONEX PENNKINETIC SUSP PO PRN ×2 (03:33→15:48)
[2019-12-13] MEDS: ZOFRAN INJ 4 MG VIAL IVP PRN ×3 (03:34→23:24)
[2019-12-13] MEDS: ZANAFLEX PO SCH ×3 (03:35→14:30)
[2019-12-13] MEDS: TYLENOL 325 MG TAB PO PRN (05:14)
[2019-12-13] MEDS: SOLU-Medrol 40 MG VIAL IVP SCH ×3 (05:15→21:23)
[2019-12-13 05:21] LABS: BASOPHILS % (AUTO) 0.8 % (0.2-1.0); HEMATOCRIT 31.3 % (36.0-47.0); HEMOGLOBIN 10.4 g/dL (12.0-16.0); LYMPHOCYTES # (AUTO) 0.7 X10^3/uL (1.3-2.9); LYMPHOCYTES % (AUTO) 12.4 % (21.0-51.0); MEAN CORPUSCULAR HEMOGLOBIN 30.8 pg (27.0-34.0); MEAN CORPUSCULAR HGB CONC 33.3 g/dL (33.0-35.0); MEAN CORPUSCULAR VOLUME 92.5 fL (80.0-100.0); MEAN PLATELET VOLUME 9.2 fL (7.4-11.0); MONOCYTES # (AUTO) 0.1 x10^3/uL (0.3-0.8); MONOCYTES % (AUTO) 2.2 % (0.0-13.0); NEUTROPHILS % (AUTO) 84.6 % (42.0-75.0); PLATELET COUNT 519 X10^3/uL (150.0-450.0); RED BLOOD COUNT 3.38 X10^6/uL (3.5-5.4); RED CELL DISTRIBUTION WIDTH 14.7 % (11.6-16.5); WHITE BLOOD COUNT 5.9 X10^3/uL (3.6-10.0)
[2019-12-13 05:30] LABS: ALANINE AMINOTRANSFERASE 23 Units/L (12-78); ALBUMIN 2.8 g/dL (3.4-5.0); ALKALINE PHOSPHATASE 53 Units/L (46-116); ASPARTATE AMINO TRANSFERASE 35 Units/L (15-37); BLOOD UREA NITROGEN 9 mg/dL (7-18); CALCIUM 9.2 mg/dL (8.5-10.1); CARBON DIOXIDE 23.4 mmol/L (21-32); CHLORIDE 107 mmol/L (98-107); COR CA(FOR HYPOALB) 10.2 mg/dL (8.5-10.1); COR NA(FOR HYPERGLY) 142 mmol/L (136-145); CREATININE 1.05 mg/dL (0.55-1.02); SODIUM 141 mmol/L (136-145); TOTAL PROTEIN 7.9 g/dL (6.4-8.2); eGFR NON BLACK RACES > 60 (>60)
--- NOTE | 2019-12-13 06:26 | RAD ---
HISTORYSOBSTUDYCHEST, 1 [id number]/2020TECHNIQUEAP view of the chestFINDINGSThe cardiac and mediastinal contours are within normal limits. The lungs are clear without focal consolidation or segmental collapse. No pleural effusion or pneumothorax.IMPRESSIONNo acute pulmonary process.Electronically signed by: Zac Beckham (Dec 13, 2019 06:25:05)
[2019-12-13] MEDS ORDERED: NS 1/2 1000 ML IV 1,000 ML IV ONE (07:08)
[2019-12-13] MEDS ORDERED: ZOLOFT PO ONE (08:13)
[2019-12-13] MEDS: VSL#3 PO SCH (08:29)
[2019-12-13] MEDS: SINGULAIR TAB 10 MG PO SCH (08:29)
[2019-12-13] MEDS: FORTAZ or TAZICEF VIAL INJ 1 G in NS 100 ML IV + SPIKE MINIBAG* 100 ML IV SCH ×2 (08:29→21:19)
[2019-12-13] MEDS: ZOLOFT PO SCH (08:30)
[2019-12-13] MEDS: ZINC SULFATE PO SCH (08:30)
[2019-12-13] MEDS: ASPIRIN EC 81 MG PO SCH (08:30)
[2019-12-13] MEDS: VENTOLIN or PROAIR HFA IN SCH ×4 (08:30→20:45)
[2019-12-13] MEDS: NEURONTIN TAB 600 MG PO SCH ×2 (08:30→21:21)
[2019-12-13] MEDS: PROTONIX TAB 40 MG PO SCH ×2 (08:30→21:22)
[2019-12-13] MEDS: MOBIC TAB 15 MG PO SCH (08:30)
[2019-12-13] MEDS: ROBITUSSIN DM PO SCH ×5 (08:30→21:22)
[2019-12-13] MEDS: SYNTHROID 75 mcg TAB PO SCH (08:30)
[2019-12-13] MEDS: LOVAZA PO SCH ×2 (08:30→21:19)
[2019-12-13] MEDS: VITAMIN D3 25 mcg (1,000 UNITS) PO SCH (08:30)
[2019-12-13] MEDS: PEPCID TAB 20 MG PO SCH (08:30)
[2019-12-13] MEDS: FOLIC ACID TAB 1 MG PO SCH (08:30)
[2019-12-13] MEDS: COZAAR PO SCH (08:31)
[2019-12-13] MEDS: TRICOR TAB 160 MG PO SCH (08:31)
[2019-12-13] MEDS ORDERED: REMDESIVIR (INVESTIGATIONAL DRUG GS-5734) 100 MG in NS 250 ML IV 250 ML IV SCH (09:00)
[2019-12-13] MEDS: LOVENOX INJ 30 MG SYR SC SCH ×2 (09:23→21:20)
[2019-12-13] MEDS: FIORICET #3 W/CODEINE CAP PO PRN ×2 (10:31→21:00)
--- NOTE | 2019-12-13 10:43 | PCM.PROG ---
Progress Note - Progress Note for Day of Date of Exam: 12/13/19 - Subjective Subjective: IS BEING TREATED FOR BRONCHOPNEUMONIA AND SUSPECTED COVID- 19. TODAY, SHE IS ALERT AND ORIENTED, LYING IN BED ON MORNING ROUNDS. SHE CONTINUES WITH COMPLAINTS OF COUGH, SHORTNESS OF BREATH, HEADACHE, AND NAUSEA AT TIMES. SHE IS CURRENTLY UTILIZING OXYGEN VIA NASAL CANNULA AT 2 LITERS/MINUTE. SHE DENIES SIGNIFICANT CHANGE IN SYMPTOMS SINCE YESTERDAY. SHE CONTINUES TO HAVE LOOSE STOOLS. ON EXAMINATION, HEART IS REGULAR IN RATE AND RHYTHM. BILATERAL LUNGS ARE NOTED WITH DIMINISHED LUNG SOUNDS THROUGHOUT. ABDOMEN IS FLAT, SOFT, AND NON-TENDER WITH NORMAL BOWEL SOUNDS NOTED IN ALL QUADRANTS. HER VITALS THIS MORNING ARE: 97.8-74-22-100%NC-132/76. LABS WERE OBTAINED. ABNORMAL LAB VALUES INCLUDE THE FOLLOWING: RBC 3.38, HGB 10.4, HCT 31.3, PLT COUNT 519, CREATININE 1.05, GLUCOSE 125, FERRITIN 945, CRP 46.0, ALBUMIN 2.8, GLOBULIN 5.1. STOOL STUDIES WERE POSTIVE FOR OCCULT BLOOD, OTHERWISE UNREMARKABLE. STOOL AND BLOOD CULTURES ARE PENDING. SPUTUM CULTURE REVEALED GROWTH OF SERRATIA FONTICOLA. A CHEST XRAY WAS OBTAINED THIS MORNING AND REVEALED: The cardiac and mediastinal contours are within normal limits. The lungs are clear without focal consolidation or segmental collapse. No pleural effusion or pneumothorax. REPEAT COVID-19 IS NEGATIVE. SHE IS CURRENTLY RECEIVING FORTAZ 1G IV BID, LEVAQUIN 750MG IV Q48H, 1/2NS AT 75 ML/HR, REMDESIVIR 100MG IV DAILY, TUSSIONEX 5ML PO Q 12H PRN, ROBITUSSIN DM 10 ML PO QID, SOLU-MEDROL 80MG IV Q8H, ZOFRAN 4MG IV Q6H PRN, PHENERGAN 12.5MG IM Q6H PRN, ALBUTEROL INHALER 2 PUFFS INH QID, AND TYLENOL 650MG PO Q6H PRN. WE WILL ADD FIORCET WITH CODEINE 2 TABLETS Q8H PRN TODAY. OTHERWISE, WE WILL CONTINUE WITH CURRENT PLAN OF CARE TODAY. WE PLAN TO FOLLOW UP WITH AM LABS AND CONTINUE TO MONITOR. - Past Medical Family Social History Past Med/Fam/Surg Hx: No changes since H&P Allergies: Allergies albuterol [From DuoNeb] Allergy (Verified 10/14/20 18:28) clarithromycin [From Biaxin] Allergy (Verified 12/11/19 18:28) ipratropium [From DuoNeb] Allergy (Verified 12/11/19 18:28) levalbuterol [From Xopenex] Allergy (Verified 12/11/19 18:29) topiramate [From Topamax] Allergy (Verified 12/11/19 18:28) - Review of Systems ROS: No change since H&P - Vital Signs and I&O's Vital Signs: Temperature 97.9 F Pulse Rate [Left] 64 Pulse Rate 67 Respiratory Rate 20 Blood Pressure [Left Arm] 95/52 O2 Sat by Pulse Oximetry 100 Intake and Output: Intake & Output 12/10/19 12/11/19 12/12/19 12/13/19 11:59 11:59 11:59 11:59 Intake Total 1656 / 1656 3382 / 3382 Output Total 2250 / 2250 3100 / 3100 Balance -594 / -594 282 / 282 - Physical Exam Oriented: Normal Eyes: Normal Ear: Normal Nose: Normal Throat: Normal Respiratory: Generalized, Diminished Cardiovascular: Normal : Normal Auscultation: Bowel Sounds: Normal Palpation: Normal Tenderness: Normal Skin: Normal Musculoskeletal: Normal Psychiatric: Normal Mood Description: Calm Affect: Normal Speech Pattern: Clear, Appropriate - Laboratory and Diagnostics Result Diagrams: 12/13/19 04:53 12/13/19 04:53 Labs: 12/11/19 18:55 Sputum - Expectorated Sputum Sputum Culture - Final Serratia Fonticola 12/11/19 18:55 Sputum - Expectorated Sputum - Final 12/11/19 18:40 Blood Blood Culture - Preliminary 12/11/19 18:35 Blood Blood Culture - Preliminary 12/12/19 13:00 Stool - Final Laboratory WBC 5.9 X10^3/uL (3.6-10.0) 12/13/19 04:53 RBC 3.38 X10^6/uL (3.5-5.4) L 12/13/19 04:53 Hgb 10.4 g/dL (12.0-16.0) L 12/13/19 04:53 Hct 31.3 % (36.0-47.0) L 12/13/19 04:53 MCV 92.5 fL (80.0-100.0) 12/13/19 04:53 MCH 30.8 pg (27.0-34.0) 12/13/19 04:53 MCHC 33.3 g/dL (33.0-35.0) 12/13/19 04:53 RDW 14.7 % (11.6-16.5) 12/13/19 04:53 Plt Count 519 X10^3/uL (150.0-450.0) H 12/13/19 04:53 Plt Count Comment Increased (ADEQUATE) A 12/11/19 18:35 MPV 9.2 fL (7.4-11.0) 12/13/19 04:53 Neut % (Auto) 84.6 % (42.0-75.0) H 12/13/19 04:53 Lymph % (Auto) 12.4 % (21.0-51.0) L 12/13/19 04:53 [place] % (Auto) 2.2 % (0.0-13.0) 12/13/19 04:53 Eos % (Auto) 0.0 % (0.9-2.9) L 12/13/19 04:53 Baso % (Auto) 0.8 % (0.2-1.0) 12/13/19 04:53 Neut # (Auto) 5.0 x10^3/uL (2.2-4.8) H 12/13/19 04:53 Lymph # (Auto) 0.7 X10^3/uL (1.3-2.9) L 12/13/19 04:53 [place] # (Auto) 0.1 x10^3/uL (0.3-0.8) L 12/13/19 04:53 Eos # (Auto) 0.0 x10^3/uL (0.0-0.2) 12/13/19 04:53 Baso # (Auto) 0.0 X10^3/uL (0.0-0.1) 12/13/19 04:53 Absolute Nucleated RBC 0.0 /100WBC 12/13/19 04:53 Plt Morphology Comment Normal (NORMAL) 12/11/19 18:35 RBC Morphology Normal (NORMAL) 12/11/19 18:35 Sample Site Right brachial 12/11/19 18:42 ABG pH 7.430 (7.35-7.45) 12/11/19 18:42 ABG pCO2 28.0 mmHg (35.0-45.0) L 12/11/19 18:42 ABG pO2 105.0 mmHg (80.0-100.0) H 12/11/19 18:42 ABG HCO3 18.6 mmol/L (22-26) L 12/11/19 18:42 ABG O2 Saturation 98.0 % (90-100) 12/11/19 18:42 ABG Base Excess -4.5 mmol/L (-2.0-2.0) L 12/11/19 18:42 Danny Test Na 12/11/19 18:42 A-a Gradient 10.0 mmHg 12/11/19 18:42 FiO2 21.0 12/11/19 18:42 Blood Gas Comments Sol well aw 12/11/19 18:42 Sodium 141 mmol/L (136-145) 12/13/19 04:53 Corrected Sodium 142 mmol/L (136-145) 12/13/19 04:53 Potassium 4.4 mmol/L (3.5-5.1) 12/13/19 04:53 Chloride 107 mmol/L (98-107) 12/13/19 04:53 Carbon Dioxide 23.4 mmol/L (21-32) 12/13/19 04:53 BUN 9 mg/dL (7-18) 12/13/19 04:53 Creatinine 1.05 mg/dL (0.55-1.02) H 12/13/19 04:53 Est GFR (MDRD) Af Amer > 60 (>60) 12/13/19 04:53 Est GFR (MDRD) Non-Af > 60 (>60) 12/13/19 04:53 Glucose 125 mg/dL (65-99) H 12/13/19 04:53 Calcium 9.2 mg/dL (8.5-10.1) 12/13/19 04:53 Corrected Calcium 10.2 mg/dL (8.5-10.1) H 12/13/19 04:53 Ferritin 945 ng/mL (8-252) H 12/13/19 04:53 Total Bilirubin 0.30 mg/dL (0.2-1.0) 12/13/19 04:53 AST 35 Units/L (15-37) 12/13/19 04:53 ALT 23 Units/L (12-78) 12/13/19 04:53 Alkaline Phosphatase 53 Units/L (46-116) 12/13/19 04:53 Creatine Kinase 224 Units/L (26-192) H 12/12/19 02:12 CK-MB (CK-2) < 1.0 ng/mL (0-4.0) 12/12/19 02:12 CK/CKMB % Calc 0.5 % (<4) 12/12/19 02:12 Troponin I < 0.02 ng/mL (0-1.5) 12/12/19 02:12 C-Reactive Protein 46.00 mg/L (0-3.0) H 12/13/19 04:53 B-Natriuretic Peptide 75.3 pg/mL (0-79) 12/11/19 18:35 Total Protein 7.9 g/dL (6.4-8.2) 12/13/19 04:53 Albumin 2.8 g/dL (3.4-5.0) L 12/13/19 04:53 Globulin 5.1 g/dL (2.5-4.5) H 12/13/19 04:53 Albumin/Globulin Ratio 0.5 Ratio (1.1-2.1) L 12/13/19 04:53 Stool Description 5g brown semi formed 12/12/19 13:00 Stool Description 5g semi formed 12/12/19 13:00 Stl Occult Blood (IFOB) Positive (NEGATIVE) A 12/12/19 13:00 Stool for White Cells Negative (NEGATIVE) 12/12/19 13:00 Stl C. diff Tox B Gene Negative (NEGATIVE) 12/12/19 13:00 Stl C. diff [id number] Negative (NEGATIVE) 12/12/19 13:00 Cryptosporid parvum Ag Negative (NEGATIVE) 12/12/19 13:00 Giardia lamblia Ag Negative (NEGATIVE) 12/12/19 13:00 SARS-CoV-2 (PCR) Negative (NEGATIVE) 12/13/19 08:10 - Plan (1) Bronchopneumonia Status: Acute Plan: FORTAZ 1G IV BID, LEVAQUIN 750MG IV Q48H, 1/2NS AT 75 ML/HR, REMDESIVIR 100MG IV DAILY, TUSSIONEX 5ML PO Q12H PRN, ROBITUSSIN DM 10 ML PO QID, SOLU- MEDROL 80MG IV Q8H, ZOFRAN 4MG IV Q6H PRN, PHENERGAN 12.5MG IM Q6H PRN, ALBUTEROL INHALER 2 PUFFS INH QID, AND TYLENOL 650MG PO Q6H PRN
[2019-12-13] MEDS: CRESTOR TAB 10 MG PO SCH (21:18)
[2019-12-13] MEDS: TOPIRAMATE 200 MG PO SCH (21:22)
[2019-12-13] MEDS: AMBIEN PO PRN (23:25)
[2019-12-14] MEDS: LEVAQUIN PREMIX IV 750 MG 750 MG/150 ML BAG IV SCH (00:33)
[2019-12-14] MEDS: TUSSIONEX PENNKINETIC SUSP PO PRN (01:00)
[2019-12-14] MEDS ORDERED: NS 1/2 1000 ML IV 1,000 ML IV ONE (04:14)
[2019-12-14] MEDS: NS 1/2 1000 ML IV 1,000 ML IV SCH (04:33)
[2019-12-14] MEDS: ZANAFLEX PO SCH ×4 (04:33→21:14)
[2019-12-14 05:41] LABS: BASOPHILS # (AUTO) 0.1 X10^3/uL (0.0-0.1); BASOPHILS % (AUTO) 0.9 % (0.2-1.0); HEMATOCRIT 31.1 % (36.0-47.0); HEMOGLOBIN 10.4 g/dL (12.0-16.0); LYMPHOCYTES # (AUTO) 1.5 X10^3/uL (1.3-2.9); LYMPHOCYTES % (AUTO) 16.4 % (21.0-51.0); MEAN CORPUSCULAR HEMOGLOBIN 31.1 pg (27.0-34.0); MEAN CORPUSCULAR HGB CONC 33.4 g/dL (33.0-35.0); MEAN PLATELET VOLUME 9.5 fL (7.4-11.0); MONOCYTES # (AUTO) 0.3 x10^3/uL (0.3-0.8); MONOCYTES % (AUTO) 3.5 % (0.0-13.0); NEUTROPHILS # (AUTO) 7.1 x10^3/uL (2.2-4.8); NEUTROPHILS % (AUTO) 79.2 % (42.0-75.0); PLATELET COUNT 552 X10^3/uL (150.0-450.0); RED BLOOD COUNT 3.35 X10^6/uL (3.5-5.4); RED CELL DISTRIBUTION WIDTH 14.9 % (11.6-16.5)
[2019-12-14 06:01] LABS: ALANINE AMINOTRANSFERASE 24 Units/L (12-78); ALBUMIN 2.8 g/dL (3.4-5.0); ALKALINE PHOSPHATASE 57 Units/L (46-116); ASPARTATE AMINO TRANSFERASE 30 Units/L (15-37); BLOOD UREA NITROGEN 7 mg/dL (7-18); CALCIUM 9.3 mg/dL (8.5-10.1); CARBON DIOXIDE 22.6 mmol/L (21-32); CHLORIDE 106 mmol/L (98-107); COR CA(FOR HYPOALB) 10.3 mg/dL (8.5-10.1); CREATININE 1.02 mg/dL (0.55-1.02); SODIUM 141 mmol/L (136-145); TOTAL PROTEIN 7.7 g/dL (6.4-8.2); eGFR NON BLACK RACES > 60 (>60)
--- NOTE | 2019-12-14 06:35 | RAD ---
HISTORYSOBSTUDYPortable AP [id number] normal heart size with essentially clear lungs and pleural spaces.IMPRESSIONNo interval change or acute/developing chest abnormality demonstrated.Electronicall y signed by: PANTERA NIELSON (Dec 14, 2019 06:33:24)
[2019-12-14] MEDS: SOLU-Medrol 40 MG VIAL IVP SCH ×3 (06:39→21:13)
[2019-12-14] MEDS ORDERED: ZOLOFT PO ONE (08:38)
[2019-12-14] MEDS: PEPCID TAB 20 MG PO SCH (09:01)
[2019-12-14] MEDS: ROBITUSSIN DM PO SCH ×4 (09:01→20:30)
[2019-12-14] MEDS: FIORICET #3 W/CODEINE CAP PO PRN ×2 (09:02→20:29)
[2019-12-14] MEDS: MOBIC TAB 15 MG PO SCH (09:03)
[2019-12-14] MEDS: NEURONTIN TAB 600 MG PO SCH ×2 (09:03→20:08)
[2019-12-14] MEDS: ZINC SULFATE PO SCH (09:03)
[2019-12-14] MEDS: SINGULAIR TAB 10 MG PO SCH (09:03)
[2019-12-14] MEDS: LOVAZA PO SCH ×2 (09:03→20:30)
[2019-12-14] MEDS: SYNTHROID 75 mcg TAB PO SCH (09:03)
[2019-12-14] MEDS: ASPIRIN EC 81 MG PO SCH (09:03)
[2019-12-14] MEDS: PROTONIX TAB 40 MG PO SCH ×2 (09:03→20:07)
[2019-12-14] MEDS: ZOLOFT PO SCH (09:03)
[2019-12-14] MEDS: VSL#3 PO SCH (09:04)
[2019-12-14] MEDS: FOLIC ACID TAB 1 MG PO SCH (09:04)
[2019-12-14] MEDS: TRICOR TAB 160 MG PO SCH (09:04)
[2019-12-14] MEDS: LOVENOX INJ 30 MG SYR SC SCH ×2 (09:05→21:00)
[2019-12-14] MEDS: VITAMIN D3 25 mcg (1,000 UNITS) PO SCH (09:05)
[2019-12-14] MEDS: COZAAR PO SCH (09:05)
[2019-12-14] MEDS: FORTAZ or TAZICEF VIAL INJ 1 G in NS 100 ML IV + SPIKE MINIBAG* 100 ML IV SCH ×2 (09:05→20:08)
[2019-12-14] MEDS: VENTOLIN or PROAIR HFA IN SCH ×4 (09:10→20:45)
[2019-12-14] MEDS: NYSTATIN SUSP MT SCH ×4 (12:15→20:08)
[2019-12-14] MEDS: DIFLUCAN 200 MG IV PREMIX* 200 MG/100 ML BAG IV SCH (12:15)
[2019-12-14] MEDS: ZOFRAN INJ 4 MG VIAL IVP PRN (12:16)
[2019-12-14] MEDS: MAGIC MOUTHWASH MT SCH ×4 (12:16→20:30)
--- NOTE | 2019-12-14 20:05 | PCM.PROG ---
Progress Note - Progress Note for Day of Date of Exam: 12/14/19 - Subjective Subjective: IS BEING TREATED FOR BRONCHOPNEUMONIA DUE TO SERRATIA FONTICOLA. TODAY, SHE IS ALERT AND ORIENTED, LYING IN BED ON MORNING ROUNDS. SHE CONTINUES WITH COMPLAINTS OF COUGH AND SHORTNESS OF BREATH. SHE ALSO REPORTS A SORE THROAT AND SORES IN MOUTH SHE IS CURRENTLY UTILIZING OXYGEN VIA NASAL CANNULA AT 2 LITERS/MINUTE. SHE DENIES SIGNIFICANT CHANGE IN SYMPTOMS SINCE YESTERDAY. ON EXAMINATION, SHE IS NOTED WITH WHITE PATCHES TO TONGUE AND MOUTH. HEART IS REGULAR IN RATE AND RHYTHM. BILATERAL LUNGS ARE NOTED WITH DIMINISHED LUNG SOUNDS THROUGHOUT. ABDOMEN IS FLAT, SOFT, AND NON-TENDER WITH NORMAL BOWEL SOUNDS NOTED IN ALL QUADRANTS. HER VITALS THIS MORNING ARE: 97.8-59-18-99%-120/6 6. LABS WERE OBTAINED. ABNORMAL LAB VALUES INCLUDE THE FOLLOWING: RBC 3.35, HGB 10.4, HCT 31.1, GLUCOSE 105, GERRITIN 1252, CRP 19.70, ALBUMIN 2.8. STOOL AND BLOOD CULTURES ARE PENDING. A CHEST XRAY WAS OBTAINED THIS MORNING AND REVEALED: No interval change or acute/developing chest abnormality demonstrated. SHE IS CURRENTLY RECEIVING FORTAZ 1G IV BID, LEVAQUIN 750MG IV Q48H, 1/2NS AT 75 ML/HR, TUSSIONEX 5ML PO Q12H PRN, ROBITUSSIN DM 10 ML PO QID, SOLU-MEDROL 80MG IV Q8H, ZOFRAN 4MG IV Q6H PRN, FIORCET PRN, PHENERGAN 12.5MG IM Q6H PRN, ALBUTEROL INHALER 2 PUFFS INH QID, AND TYLENOL 650MG PO Q6H PRN. TODAY, WE WILL START MAGIC MOUTHWASH AND NYSTATIN SWISH AND SWALLOW QID. WE WILL START DIFLUCAN 200MG IV DAILY. OTHERWISE, WE WILL CONTINUE WITH CURRENT PLAN OF CARE TODAY. WE PLAN TO FOLLOW UP WITH AM LABS AND CONTINUE TO MONITOR. - Past Medical Family Social History Past Med/Fam/Surg Hx: No changes since H&P Allergies: Allergies albuterol [From DuoNeb] Allergy (Verified 12/11/19 18:28) clarithromycin [From Biaxin] Allergy (Verified 12/11/19 18:28) ipratropium [From DuoNeb] Allergy (Verified 12/11/19 18:28) levalbuterol [From Xopenex] Allergy (Verified 12/11/19 18:29) topiramate [From Topamax] Allergy (Verified 12/11/19 18:28) - Review of Systems ROS: No change since H&P - Vital Signs and I&O's Vital Signs: Temperature 97.7 F Pulse Rate [Left] 56 Pulse Rate 72 Respiratory Rate 20 Blood Pressure [Left Arm] 111/56 O2 Sat by Pulse Oximetry 99 Intake and Output: Intake & Output 12/12/19 12/13/19 12/14/19 12/15/19 11:59 11:59 11:59 11:59 Intake Total 1656 / 1656 3382 / 3382 4425 / 4425 1488 / 1488 Output Total 2250 / 2250 3100 / 3100 4700 / 4700 1900 / 1900 Balance -594 / -594 282 / 282 -275 / -275 -412 / -412 - Physical Exam Oriented: Normal Eyes: Normal Ear: Normal Nose: Normal Throat: Normal Respiratory: Generalized, Diminished Cardiovascular: Normal : Normal Auscultation: Bowel Sounds: Normal Tenderness: Normal Skin: Normal Musculoskeletal: Normal Psychiatric: Normal Mood Description: Calm Affect: Normal Speech Pattern: Clear, Appropriate - Laboratory and Diagnostics Result Diagrams: 12/14/19 04:50 12/14/19 04:50 Labs: 12/12/19 13:00 Stool Stool Culture - Final 12/12/19 13:00 Stool - Final 12/11/19 18:55 Sputum - Expectorated Sputum Sputum Culture - Final Serratia Fonticola 12/11/19 18:55 Sputum - Expectorated Sputum - Final 12/11/19 18:40 Blood Blood Culture - Preliminary 12/11/19 18:35 Blood Blood Culture - Preliminary Laboratory WBC 9.0 X10^3/uL (3.6-10.0) 12/14/19 04:50 RBC 3.35 X10^6/uL (3.5-5.4) L 12/14/19 04:50 Hgb 10.4 g/dL (12.0-16.0) L 12/14/19 04:50 Hct 31.1 % (36.0-47.0) L 12/14/19 04:50 MCV 93.0 fL (80.0-100.0) 12/14/19 04:50 MCH 31.1 pg (27.0-34.0) 12/14/19 04:50 MCHC 33.4 g/dL (33.0-35.0) 12/14/19 04:50 RDW 14.9 % (11.6-16.5) 12/14/19 04:50 Plt Count 552 X10^3/uL (150.0-450.0) H 12/14/19 04:50 Plt Count Comment Increased (ADEQUATE) A 12/11/19 18:35 MPV 9.5 fL (7.4-11.0) 12/14/19 04:50 Neut % (Auto) 79.2 % (42.0-75.0) H 12/14/19 04:50 Lymph % (Auto) 16.4 % (21.0-51.0) L 12/14/19 04:50 [place] % (Auto) 3.5 % (0.0-13.0) 12/14/19 04:50 Eos % (Auto) 0.0 % (0.9-2.9) L 12/14/19 04:50 Baso % (Auto) 0.9 % (0.2-1.0) 12/14/19 04:50 Neut # (Auto) 7.1 x10^3/uL (2.2-4.8) H 12/14/19 04:50 Lymph # (Auto) 1.5 X10^3/uL (1.3-2.9) 12/14/19 04:50 [place] # (Auto) 0.3 x10^3/uL (0.3-0.8) 12/14/19 04:50 Eos # (Auto) 0.0 x10^3/uL (0.0-0.2) 12/14/19 04:50 Baso # (Auto) 0.1 X10^3/uL (0.0-0.1) 12/14/19 04:50 Absolute Nucleated RBC 0.0 /100WBC 12/14/19 04:50 Plt Morphology Comment Normal (NORMAL) 12/11/19 18:35 RBC Morphology Normal (NORMAL) 12/11/19 18:35 Sample Site Right brachial 12/11/19 18:42 ABG pH 7.430 (7.35-7.45) 12/11/19 18:42 ABG pCO2 28.0 mmHg (35.0-45.0) L 12/11/19 18:42 ABG pO2 105.0 mmHg (80.0-100.0) H 12/11/19 18:42 ABG HCO3 18.6 mmol/L (22-26) L 12/11/19 18:42 ABG O2 Saturation 98.0 % (90-100) 12/11/19 18:42 ABG Base Excess -4.5 mmol/L (-2.0-2.0) L 12/11/19 18:42 Danny Test Na 12/11/19 18:42 A-a Gradient 10.0 mmHg 12/11/19 18:42 FiO2 21.0 12/11/19 18:42 Blood Gas Comments Sol well aw 12/11/19 18:42 Sodium 141 mmol/L (136-145) 12/14/19 04:50 Corrected Sodium TNP 12/14/19 04:50 Potassium 3.9 mmol/L (3.5-5.1) 12/14/19 04:50 Chloride 106 mmol/L (98-107) 12/14/19 04:50 Carbon Dioxide 22.6 mmol/L (21-32) 12/14/19 04:50 BUN 7 mg/dL (7-18) 12/14/19 04:50 Creatinine 1.02 mg/dL (0.55-1.02) 12/14/19 04:50 Est GFR (MDRD) Af Amer > 60 (>60) 12/14/19 04:50 Est GFR (MDRD) Non-Af > 60 (>60) 12/14/19 04:50 Glucose 105 mg/dL (65-99) H 12/14/19 04:50 Calcium 9.3 mg/dL (8.5-10.1) 12/14/19 04:50 Corrected Calcium 10.3 mg/dL (8.5-10.1) H 12/14/19 04:50 Ferritin 1252 ng/mL (8-252) H 12/14/19 04:50 Total Bilirubin 0.20 mg/dL (0.2-1.0) 12/14/19 04:50 AST 30 Units/L (15-37) 12/14/19 04:50 ALT 24 Units/L (12-78) 12/14/19 04:50 Alkaline Phosphatase 57 Units/L (46-116) 12/14/19 04:50 Creatine Kinase 224 Units/L (26-192) H 12/12/19 02:12 CK-MB (CK-2) < 1.0 ng/mL (0-4.0) 12/12/19 02:12 CK/CKMB % Calc 0.5 % (<4) 12/12/19 02:12 Troponin I < 0.02 ng/mL (0-1.5) 12/12/19 02:12 C-Reactive Protein 19.70 mg/L (0-3.0) H 12/14/19 04:50 B-Natriuretic Peptide 75.3 pg/mL (0-79) 12/11/19 18:35 Total Protein 7.7 g/dL (6.4-8.2) 12/14/19 04:50 Albumin 2.8 g/dL (3.4-5.0) L 12/14/19 04:50 Globulin 4.9 g/dL (2.5-4.5) H 12/14/19 04:50 Albumin/Globulin Ratio 0.6 Ratio (1.1-2.1) L 12/14/19 04:50 Stool Description 5g brown semi formed 12/12/19 13:00 Stool Description 5g semi formed 12/12/19 13:00 Stl Occult Blood (IFOB) Positive (NEGATIVE) A 12/12/19 13:00 Stool for White Cells Negative (NEGATIVE) 12/12/19 13:00 Stl C. diff Tox B Gene Negative (NEGATIVE) 12/12/19 13:00 Stl C. diff [id number] Negative (NEGATIVE) 12/12/19 13:00 Cryptosporid parvum Ag Negative (NEGATIVE) 12/12/19 13:00 Giardia lamblia Ag Negative (NEGATIVE) 12/12/19 13:00 SARS-CoV-2 (PCR) Negative (NEGATIVE) 12/13/19 08:10 Miscellaneous Test Resp panel 12/11/19 18:55 - Plan (1) Bronchopneumonia Status: Acute Plan: FORTAZ 1G IV BID, LEVAQUIN 750MG IV Q48H, 1/2NS AT 75 ML/HR, REMDESIVIR 100MG IV DAILY, TUSSIONEX 5ML PO Q12H PRN, ROBITUSSIN DM 10 ML PO QID, SOLU- MEDROL 80MG IV Q8H, ZOFRAN 4MG IV Q6H PRN, PHENERGAN 12.5MG IM Q6H PRN, ALBUTEROL INHALER 2 PUFFS INH QID, AND TYLENOL 650MG PO Q6H PRN (2) Evelyn infection of mouth Status: Acute Plan: NYSTATIN SWISH AND SWALLOW, MAGIC MOUTHWASH, DIFLUCAN 200MG IV DAILY
[2019-12-14] MEDS: TOPIRAMATE 200 MG PO SCH (20:07)
[2019-12-14] MEDS: CRESTOR TAB 10 MG PO SCH (20:07)
[2019-12-14] MEDS: AMBIEN PO PRN (22:34)
[2019-12-15] MEDS ORDERED: NS 1/2 1000 ML IV 1,000 ML IV ONE ×3 (01:13→20:02)
[2019-12-15] MEDS: NS 1/2 1000 ML IV 1,000 ML IV SCH ×4 (01:42→21:07)
[2019-12-15] MEDS: FIORICET #3 W/CODEINE CAP PO PRN ×2 (04:49→19:32)
[2019-12-15] MEDS: ZANAFLEX PO SCH ×3 (05:02→21:07)
[2019-12-15] MEDS: SOLU-Medrol 40 MG VIAL IVP SCH ×3 (05:02→21:06)
[2019-12-15 05:13] LABS: BASOPHILS % (AUTO) 0.3 % (0.2-1.0); HEMATOCRIT 31.2 % (36.0-47.0); HEMOGLOBIN 10.5 g/dL (12.0-16.0); LYMPHOCYTES # (AUTO) 1.2 X10^3/uL (1.3-2.9); LYMPHOCYTES % (AUTO) 16.2 % (21.0-51.0); MEAN CORPUSCULAR HEMOGLOBIN 31.2 pg (27.0-34.0); MEAN CORPUSCULAR HGB CONC 33.6 g/dL (33.0-35.0); MEAN CORPUSCULAR VOLUME 92.8 fL (80.0-100.0); MEAN PLATELET VOLUME 9.2 fL (7.4-11.0); MONOCYTES # (AUTO) 0.1 x10^3/uL (0.3-0.8); MONOCYTES % (AUTO) 1.3 % (0.0-13.0); NEUTROPHILS # (AUTO) 6.3 x10^3/uL (2.2-4.8); NEUTROPHILS % (AUTO) 82.2 % (42.0-75.0); PLATELET COUNT 630 X10^3/uL (150.0-450.0); RED BLOOD COUNT 3.37 X10^6/uL (3.5-5.4); RED CELL DISTRIBUTION WIDTH 14.8 % (11.6-16.5); WHITE BLOOD COUNT 7.7 X10^3/uL (3.6-10.0)
[2019-12-15 05:24] LABS: ALANINE AMINOTRANSFERASE 25 Units/L (12-78); ALBUMIN 3.1 g/dL (3.4-5.0); ALKALINE PHOSPHATASE 60 Units/L (46-116); ASPARTATE AMINO TRANSFERASE 22 Units/L (15-37); BLOOD UREA NITROGEN 11 mg/dL (7-18); CALCIUM 9.7 mg/dL (8.5-10.1); CARBON DIOXIDE 25.4 mmol/L (21-32); CHLORIDE 104 mmol/L (98-107); COR CA(FOR HYPOALB) 10.4 mg/dL (8.5-10.1); COR NA(FOR HYPERGLY) 141 mmol/L (136-145); CREATININE 1.12 mg/dL (0.55-1.02); SODIUM 140 mmol/L (136-145); TOTAL PROTEIN 8.3 g/dL (6.4-8.2); eGFR NON BLACK RACES 56 (>60)
[2019-12-15 06:29] LABS: PLATELET MORPHOLOGY COMMENT NORMAL (NORMAL); STOMATOCYTES 2+
--- NOTE | 2019-12-15 06:37 | RAD ---
HISTORYSOBSTUDYCHEST, 1 [id number] trachea is midline. The cardiac silhouette is unremarkable . The lungs are clear without focal infiltrate or effusion. The bony thorax is unremarkable.[ ]IMPRESSIONNo acute cardiopulmonary disease.Electronically signed by: ELIZABETH MENDOZA (Dec 15, 2019 06:36:48)
[2019-12-15] MEDS ORDERED: ZOLOFT PO ONE (08:06)
[2019-12-15] MEDS: ROBITUSSIN DM PO SCH ×4 (08:18→20:23)
[2019-12-15] MEDS: VITAMIN D3 25 mcg (1,000 UNITS) PO SCH (08:18)
[2019-12-15] MEDS: FOLIC ACID TAB 1 MG PO SCH (08:19)
[2019-12-15] MEDS: MOBIC TAB 15 MG PO SCH (08:19)
[2019-12-15] MEDS: SYNTHROID 75 mcg TAB PO SCH (08:20)
[2019-12-15] MEDS: ZOLOFT PO SCH (08:20)
[2019-12-15] MEDS: PROTONIX TAB 40 MG PO SCH ×2 (08:20→20:25)
[2019-12-15] MEDS: ASPIRIN EC 81 MG PO SCH (08:20)
[2019-12-15] MEDS: TRICOR TAB 160 MG PO SCH (08:21)
[2019-12-15] MEDS: PEPCID TAB 20 MG PO SCH (08:21)
[2019-12-15] MEDS: VSL#3 PO SCH (08:21)
[2019-12-15] MEDS: NYSTATIN SUSP MT SCH ×4 (08:22→20:25)
[2019-12-15] MEDS: LOVAZA PO SCH ×2 (08:22→20:23)
[2019-12-15] MEDS: LOVENOX INJ 30 MG SYR SC SCH ×2 (08:23→20:24)
[2019-12-15] MEDS: NEURONTIN TAB 600 MG PO SCH ×2 (08:23→20:26)
[2019-12-15] MEDS: SINGULAIR TAB 10 MG PO SCH (08:23)
[2019-12-15] MEDS: MAGIC MOUTHWASH MT SCH ×4 (08:25→20:26)
[2019-12-15] MEDS: COZAAR PO SCH (08:26)
[2019-12-15] MEDS: ZINC SULFATE PO SCH (08:26)
[2019-12-15] MEDS: FORTAZ or TAZICEF VIAL INJ 1 G in NS 100 ML IV + SPIKE MINIBAG* 100 ML IV SCH ×2 (08:29→20:24)
[2019-12-15] MEDS: DIFLUCAN 200 MG IV PREMIX* 200 MG/100 ML BAG IV SCH (09:33)
[2019-12-15] MEDS: VENTOLIN or PROAIR HFA IN SCH ×4 (09:35→21:12)
--- NOTE | 2019-12-15 13:14 | PCM.PROG ---
Progress Note - Progress Note for Day of Date of Exam: 12/15/19 - Subjective Subjective: IS BEING TREATED FOR BRONCHOPNEUMONIA DUE TO SERRATIA FONTICOLA. TODAY, SHE IS ALERT AND ORIENTED, LYING IN BED ON MORNING ROUNDS. SHE CONTINUES WITH COMPLAINTS OF COUGH, SHORTNESS OF BREATH, AND IRRITATION TO THE MOUTH. SHE IS CURRENTLY UTILIZING OXYGEN VIA NASAL CANNULA AT 2 LITERS/MINUTE. SHE DENIES SIGNIFICANT CHANGE IN SYMPTOMS SINCE YESTERDAY. ON EXAMINATION, SHE IS NOTED WITH WHITE PATCHES TO TONGUE AND MOUTH. HEART IS REGULAR IN RATE AND RHYTHM. BILATERAL LUNGS ARE NOTED WITH DIMINISHED LUNG SOUNDS THROUGHOUT. ABDOMEN IS FLAT, SOFT, AND NON-TENDER WITH NORMAL BOWEL SOUNDS NOTED IN ALL QUADRANTS. HER VITALS THIS MORNING ARE: 97.8-56-18-98%-126/68. LABS WERE OBTAINED. ABNORMAL LAB VALUES INCLUDE THE FOLLOWING: RBC 3.37, HGB 10.5, HCT 31.2, PLT COUNT 630, CREATININE 1.12, GLUCOE 134, FERRITIN 1145, CRP 9.30, TOTAL PROTEIN 8.3, ALBUMIN 3.1, GLOBULIN 5.2. STOOL AND BLOOD CULTURES ARE PENDING. A CHEST XRAY WAS OBTAINED THIS MORNING AND REVEALED: NO ACUTE CARDIOPULMONARY DISEASE. SHE IS CURRENTLY RECEIVING FORTAZ 1G IV BID, LEVAQUIN 750MG IV Q48H, 1/2NS AT 75 ML/HR, TUSSIONEX 5ML PO Q12H PRN, ROBITUSSIN DM 10 ML PO QID, SOLU- MEDROL 80MG IV Q8H, MAGIC MOUTHWASH QID, NYSTATIN QID, DIFLUCAN 200MG IV DAILY, ZOFRAN 4MG IV Q6H PRN, FIORCET PRN, PHENERGAN 12.5MG IM Q6H PRN, ALBUTEROL INHALER 2 PUFFS INH QID, AND TYLENOL 650MG PO Q6H PRN. WE WILL CONTINUE WITH CURRENT PLAN OF CARE TODAY. OTHERWISE, WE PLAN TO FOLLOW UP WITH AM LABS AND CONTINUE TO MONITOR. - Past Medical Family Social History Past Med/Fam/Surg Hx: No changes since H&P Allergies: Allergies albuterol [From DuoNeb] Allergy (Verified 12/11/19 18:28) clarithromycin [From Biaxin] Allergy (Verified 12/11/19 18:28) ipratropium [From DuoNeb] Allergy (Verified 12/11/19 18:28) levalbuterol [From Xopenex] Allergy (Verified 12/11/19 18:29) topiramate [From Topamax] Allergy (Verified 12/11/19 18:28) - Review of Systems ROS: No change since H&P - Vital Signs and I&O's Vital Signs: Temperature 97.7 F Pulse Rate [Left] 76 Pulse Rate 65 Respiratory Rate 18 Blood Pressure [Left Arm] 105/58 O2 Sat by Pulse Oximetry 100 Intake and Output: Intake & Output 12/13/19 12/14/19 12/15/19 12/16/19 11:59 11:59 11:59 11:59 Intake Total 3382 / 3382 4425 / 4425 3173 / 3173 Output Total 3100 / 3100 4700 / 4700 5600 / 5600 Balance 282 / 282 -275 / -275 -2427 / -2427 - Physical Exam Oriented: Normal Eyes: Normal Ear: Normal Nose: Normal Throat: Normal Respiratory: Generalized, Diminished Cardiovascular: Normal : Normal Auscultation: Bowel Sounds: Normal Tenderness: Normal Skin: Normal Musculoskeletal: Normal Psychiatric: Normal Mood Description: Calm Affect: Normal Speech Pattern: Clear, Appropriate - Laboratory and Diagnostics Result Diagrams: 12/15/19 04:30 12/15/19 04:30 Labs: 12/12/19 13:00 Stool Stool Culture - Final 12/12/19 13:00 Stool - Final 12/11/19 18:55 Sputum - Expectorated Sputum Sputum Culture - Final Serratia Fonticola 12/11/19 18:55 Sputum - Expectorated Sputum - Final 12/11/19 18:40 Blood Blood Culture - Preliminary 12/11/19 18:35 Blood Blood Culture - Preliminary Laboratory WBC 7.7 X10^3/uL (3.6-10.0) 12/15/19 04:30 RBC 3.37 X10^6/uL (3.5-5.4) L 12/15/19 04:30 Hgb 10.5 g/dL (12.0-16.0) L 12/15/19 04:30 Hct 31.2 % (36.0-47.0) L 12/15/19 04:30 MCV 92.8 fL (80.0-100.0) 12/15/19 04:30 MCH 31.2 pg (27.0-34.0) 12/15/19 04:30 MCHC 33.6 g/dL (33.0-35.0) 12/15/19 04:30 RDW 14.8 % (11.6-16.5) 12/15/19 04:30 Plt Count 630 X10^3/uL (150.0-450.0) H 12/15/19 04:30 Plt Count Comment Increased (ADEQUATE) A 12/15/19 04:30 MPV 9.2 fL (7.4-11.0) 12/15/19 04:30 Neut % (Auto) 82.2 % (42.0-75.0) H 12/15/19 04:30 Lymph % (Auto) 16.2 % (21.0-51.0) L 12/15/19 04:30 [place] % (Auto) 1.3 % (0.0-13.0) 12/15/19 04:30 Eos % (Auto) 0.0 % (0.9-2.9) L 12/15/19 04:30 Baso % (Auto) 0.3 % (0.2-1.0) 12/15/19 04:30 Neut # (Auto) 6.3 x10^3/uL (2.2-4.8) H 12/15/19 04:30 Lymph # (Auto) 1.2 X10^3/uL (1.3-2.9) L 12/15/19 04:30 [place] # (Auto) 0.1 x10^3/uL (0.3-0.8) L 12/15/19 04:30 Eos # (Auto) 0.0 x10^3/uL (0.0-0.2) 12/15/19 04:30 Baso # (Auto) 0.0 X10^3/uL (0.0-0.1) 12/15/19 04:30 Absolute Nucleated RBC 0.1 /100WBC 12/15/19 04:30 Plt Morphology Comment Normal (NORMAL) 12/15/19 04:30 RBC Morphology Abnormal (NORMAL) A 12/15/19 04:30 Stomatocytes 2+ A 12/15/19 04:30 Sample Site Right brachial 12/11/19 18:42 ABG pH 7.430 (7.35-7.45) 12/11/19 18:42 ABG pCO2 28.0 mmHg (35.0-45.0) L 12/11/19 18:42 ABG pO2 105.0 mmHg (80.0-100.0) H 12/11/19 18:42 ABG HCO3 18.6 mmol/L (22-26) L 12/11/19 18:42 ABG O2 Saturation 98.0 % (90-100) 12/11/19 18:42 ABG Base Excess -4.5 mmol/L (-2.0-2.0) L 12/11/19 18:42 Danny Test Na 12/11/19 18: A-a Gradient 10.0 mmHg 12/11/19 18:42 FiO2 21.0 12/11/19 18:42 Blood Gas Comments Sol well aw 12/11/19 18:42 Sodium 140 mmol/L (136-145) 12/15/19 04:30 Corrected Sodium 141 mmol/L (136-145) 12/15/19 04:30 Potassium 4.5 mmol/L (3.5-5.1) 12/15/19 04:30 Chloride 104 mmol/L (98-107) 12/15/19 04:30 Carbon Dioxide 25.4 mmol/L (21-32) 12/15/19 04:30 BUN 11 mg/dL (7-18) 12/15/19 04:30 Creatinine 1.12 mg/dL (0.55-1.02) H 12/15/19 04:30 Est GFR (MDRD) Af Amer > 60 (>60) 12/15/19 04:30 Est GFR (MDRD) Non-Af 56 (>60) L 12/15/19 04:30 Glucose 134 mg/dL (65-99) H 12/15/19 04:30 Calcium 9.7 mg/dL (8.5-10.1) 12/15/19 04:30 Corrected Calcium 10.4 mg/dL (8.5-10.1) H 12/15/19 04:30 Ferritin 1145 ng/mL (8-252) H 12/15/19 04:30 Total Bilirubin 0.20 mg/dL (0.2-1.0) 12/15/19 04:30 AST 22 Units/L (15-37) 12/15/19 04:30 ALT 25 Units/L (12-78) 12/15/19 04:30 Alkaline Phosphatase 60 Units/L (46-116) 12/15/19 04:30 Creatine Kinase 224 Units/L (26-192) H 12/12/19 02:12 CK-MB (CK-2) < 1.0 ng/mL (0-4.0) 12/12/19 02:12 CK/CKMB % Calc 0.5 % (<4) 12/12/19 02:12 Troponin I < 0.02 ng/mL (0-1.5) 12/12/19 02:12 C-Reactive Protein 9.30 mg/L (0-3.0) H 12/15/19 04:30 B-Natriuretic Peptide 75.3 pg/mL (0-79) 12/11/19 18:35 Total Protein 8.3 g/dL (6.4-8.2) H 12/15/19 04:30 Albumin 3.1 g/dL (3.4-5.0) L 12/15/19 04:30 Globulin 5.2 g/dL (2.5-4.5) H 12/15/19 04:30 Albumin/Globulin Ratio 0.6 Ratio (1.1-2.1) L 12/15/19 04:30 Stool Description 5g brown semi formed 12/12/19 13:00 Stool Description 5g semi formed 12/12/19 13:00 Stl Occult Blood (IFOB) Positive (NEGATIVE) A 12/12/19 13:00 Stool for White Cells Negative (NEGATIVE) 12/12/19 13:00 Stl C. diff Tox B Gene Negative (NEGATIVE) 12/12/19 13:00 Stl C. diff [id number] Negative (NEGATIVE) 12/12/19 13:00 Cryptosporid parvum Ag Negative (NEGATIVE) 12/12/19 13:00 Giardia lamblia Ag Negative (NEGATIVE) 12/12/19 13:00 SARS-CoV-2 (PCR) Negative (NEGATIVE) 12/13/19 08:10 Miscellaneous Test Resp panel 12/11/19 18:55 - Plan (1) Bronchopneumonia Status: Acute Plan: FORTAZ 1G IV BID, LEVAQUIN 750MG IV Q48H, 1/2NS AT 75 ML/HR, REMDESIVIR 100MG IV DAILY, TUSSIONEX 5ML PO Q12H PRN, ROBITUSSIN DM 10 ML PO QID, SOLU- MEDROL 80MG IV Q8H, ZOFRAN 4MG IV Q6H PRN, PHENERGAN 12.5MG IM Q6H PRN, ALBUTEROL INHALER 2 PUFFS INH QID, AND TYLENOL 650MG PO Q6H PRN (2) Evelyn infection of mouth Status: Acute Plan: NYSTATIN SWISH AND SWALLOW, MAGIC MOUTHWASH, DIFLUCAN 200MG IV DAILY
[2019-12-15] MEDS: CRESTOR TAB 10 MG PO SCH (20:22)
[2019-12-15] MEDS: TOPIRAMATE 200 MG PO SCH (20:23)
[2019-12-15] MEDS: AMBIEN PO PRN (22:29)
[2019-12-16] MEDS: ZOFRAN INJ 4 MG VIAL IVP PRN (01:25)
[2019-12-16] MEDS: LEVAQUIN PREMIX IV 750 MG 750 MG/150 ML BAG IV SCH (01:29)
[2019-12-16] MEDS: FIORICET #3 W/CODEINE CAP PO PRN (03:40)
[2019-12-16] MEDS: TUSSIONEX PENNKINETIC SUSP PO PRN (03:41)
[2019-12-16 05:17] LABS: BASOPHILS % (AUTO) 0.2 % (0.2-1.0); HEMATOCRIT 30.7 % (36.0-47.0); HEMOGLOBIN 10.3 g/dL (12.0-16.0); LYMPHOCYTES # (AUTO) 1.3 X10^3/uL (1.3-2.9); LYMPHOCYTES % (AUTO) 13.1 % (21.0-51.0); MEAN CORPUSCULAR HEMOGLOBIN 30.7 pg (27.0-34.0); MEAN CORPUSCULAR HGB CONC 33.4 g/dL (33.0-35.0); MEAN CORPUSCULAR VOLUME 91.9 fL (80.0-100.0); MEAN PLATELET VOLUME 9.2 fL (7.4-11.0); MONOCYTES # (AUTO) 0.2 x10^3/uL (0.3-0.8); MONOCYTES % (AUTO) 2.5 % (0.0-13.0); NEUTROPHILS # (AUTO) 8.2 x10^3/uL (2.2-4.8); NEUTROPHILS % (AUTO) 84.2 % (42.0-75.0); PLATELET COUNT 585 X10^3/uL (150.0-450.0); RED BLOOD COUNT 3.34 X10^6/uL (3.5-5.4); RED CELL DISTRIBUTION WIDTH 14.7 % (11.6-16.5); WHITE BLOOD COUNT 9.8 X10^3/uL (3.6-10.0)
--- NOTE | 2019-12-16 05:21 | RAD ---
HISTORYSOBSTUDYCHEST, 1 [id number] trachea is midline. The cardiac silhouette is unremarkable . The lungs are clear without focal infiltrate or effusion. The bony thorax is unremarkable.IMPRESSIONNo acute cardiopulmonary disease.Electronically signed by: Ariella Wren (Dec 16, 2019 05:20:00)
[2019-12-16 05:22] LABS: ALANINE AMINOTRANSFERASE 24 Units/L (12-78); ALBUMIN 2.9 g/dL (3.4-5.0); ALKALINE PHOSPHATASE 66 Units/L (46-116); ASPARTATE AMINO TRANSFERASE 21 Units/L (15-37); BLOOD UREA NITROGEN 15 mg/dL (7-18); CALCIUM 9.3 mg/dL (8.5-10.1); CARBON DIOXIDE 26.5 mmol/L (21-32); CHLORIDE 105 mmol/L (98-107); COR CA(FOR HYPOALB) 10.2 mg/dL (8.5-10.1); COR NA(FOR HYPERGLY) 141 mmol/L (136-145); CREATININE 1.09 mg/dL (0.55-1.02); SODIUM 141 mmol/L (136-145); TOTAL PROTEIN 7.7 g/dL (6.4-8.2); eGFR NON BLACK RACES 58 (>60)
[2019-12-16] MEDS: ZANAFLEX PO SCH (05:38)
[2019-12-16] MEDS: SOLU-Medrol 40 MG VIAL IVP SCH (05:38)
[2019-12-16] MEDS ORDERED: ZOLOFT PO ONE (08:11)
[2019-12-16] MEDS: ASPIRIN EC 81 MG PO SCH (08:35)
[2019-12-16] MEDS: COZAAR PO SCH (08:36)
[2019-12-16] MEDS: FOLIC ACID TAB 1 MG PO SCH (08:36)
[2019-12-16] MEDS: DIFLUCAN 200 MG IV PREMIX* 200 MG/100 ML BAG IV SCH (08:36)
[2019-12-16] MEDS: FORTAZ or TAZICEF VIAL INJ 1 G in NS 100 ML IV + SPIKE MINIBAG* 100 ML IV SCH (08:37)
[2019-12-16] MEDS: LOVENOX INJ 30 MG SYR SC SCH (08:37)
[2019-12-16] MEDS: LOVAZA PO SCH (08:37)
[2019-12-16] MEDS: MOBIC TAB 15 MG PO SCH (08:38)
[2019-12-16] MEDS: MAGIC MOUTHWASH MT SCH (08:38)
[2019-12-16] MEDS: PEPCID TAB 20 MG PO SCH (08:39)
[2019-12-16] MEDS: NYSTATIN SUSP MT SCH (08:39)
[2019-12-16] MEDS: NEURONTIN TAB 600 MG PO SCH (08:39)
[2019-12-16] MEDS: SYNTHROID 75 mcg TAB PO SCH (08:40)
[2019-12-16] MEDS: SINGULAIR TAB 10 MG PO SCH (08:40)
[2019-12-16] MEDS: PROTONIX TAB 40 MG PO SCH (08:40)
[2019-12-16] MEDS: ROBITUSSIN DM PO SCH (08:40)
[2019-12-16] MEDS: VITAMIN D3 25 mcg (1,000 UNITS) PO SCH (08:41)
[2019-12-16] MEDS: VSL#3 PO SCH (08:41)
[2019-12-16] MEDS: ZINC SULFATE PO SCH (08:41)
[2019-12-16] MEDS: TRICOR TAB 160 MG PO SCH (08:41)
[2019-12-16] MEDS: NS 1/2 1000 ML IV 1,000 ML IV SCH ×2 (08:42→10:26)
[2019-12-16] MEDS: ZOLOFT PO SCH (08:42)
[2019-12-16] MEDS: VENTOLIN or PROAIR HFA IN SCH ×2 (09:14→12:05)
[2019-12-16 11:19] VITALS: BP 103/58
== END 2019-12-16 12:50 | disposition home or self-care (01) ==
LOC: ICU → MERGE 17:56
PROVIDERS: ADMIT Internal Medicine; ATTEND Internal Medicine
DX: B37.0 Candidal stomatitis; E03.8 Other specified hypothyroidism; J15.6 Pneumonia due to other Gram-negative bacteria; Z20.828 Contact with and (suspected) exposure to other viral communicable diseases; R50.9 Fever, unspecified; R06.02 Shortness of breath; I10 Essential (primary) hypertension